=== PATIENT | male | born 1960 | race Caucasian/White ===

== ENCOUNTER 2020-02-22 04:59 | Inpatient (IN) | payer BC ==
[~2020-02-22] VITALS: Ht 165.1 cm; Wt 95.7 kg
[~2020-02-22 04:59] MED LIST: PRINZIDE 12.5 M1 TA1 PO
[2020-02-22] MEDS ORDERED: ZESTRIL 20MG TA20 MG PO (05:06)
[2020-02-22] MEDS ORDERED: HCTZ12.5TAB PO (05:06)
[2020-02-22 05:25] LABS: HEMATOCRIT 40.6 % (42.0-52.0); HEMOGLOBIN 14.5 g/dl (13.5-18.0); MEAN CELL VOLUME 96 fl (80.0-100.0); MEAN CORPUSCULAR HEMOGLOBIN 34 pg (27.0-31.0); MEAN CORPUSCULAR HGB CONC 36 g/dl (33.0-37.0); MEAN PLATELET VOLUME 8.9 fl (7.4-10.4); PLATELET COUNT 237 K/mm3 (130-400); RED BLOOD COUNT 4.25 M/mm3 (4.20-5.60); REDCELL DISTRIBUTION WIDTH-CV 11.7 % (11.5-14.5)
[2020-02-22 05:32] LABS: PROTHROMBIN TIME 11.1 SECONDS (9.7-12.8)
[2020-02-22 05:37] LABS: ALBUMIN 4.8 gm/dL (3.5-5.0); BILIRUBIN,TOTAL 0.8 mg/dL (0.0-1.0); CREATININE, serum 1.4 (0.66-1.25); POTASSIUM 4.1 mmol/L (3.4-5.0); TOTAL PROTEIN 8.5 gm/dL (6.4-8.2)
[2020-02-22 05:45] LABS: BAND 1 % (0-10); LYMPHOCYTE 2 % (20.0-51.0); NEUTROPHILS 82 % (42.0-75.2); PLATELET ESTIMATE NORMAL (NORMAL)
[2020-02-22 05:46] LABS: TROPONIN-I 0.03 ng/mL (0.000-0.035)
[2020-02-22 09:36] VITALS: BP 118/74; PULSE 95; TEMP 98.2
--- NOTE | 2020-02-22 09:40 | NUR ---
PATIENT ADMITED INTO ROOM 327 FROM ER. PATIENT REPORTS FALLING AT HOME LAST THUR, PAIN KEPT INCREASING AND HE CALLED EMS TODAY WHEN HE COULD GET UP. PATIENT PRESENTED IN SEVERE PAIN IN RIGHT RIBS & BACK. CT SHOWED 7 & 8tH RIB AND T12 FX'S. PATIENT REPORTS INTERMITTENT, SEVERE MUSCLE CRAMPS IN RIGHT UPPER BACK. PATIENT GIVEN SEVERAL PAIN MEDICATIONS & ATIVAN IN ER. ER REPORTED TACHYCARDIA OF 120-130'S, PATIENT NOW IN 80'S ON TELE. ALL OTHER VSS. PATIENT REPORTS PAIN IS BETTER BUT STILL HAS OCCATIONAL BACK SPAMS. HEAD TO TOE ASSESSMENT COMPLETE. HOSPITALIST NOTIFIED OF ARRIVAL, AWAITING ORDERS. PATIENT CURRENTLY NPO. IV FLUIDS INFUSING VIA PUMP INTO LEFT HAND IV. NO OTHER NEEDS. CALL LIGHT IN REACH.
[2020-02-22] MEDS ORDERED: ADVIL200 MG PO (10:33)
[2020-02-22] MEDS ORDERED: TYLENOL 500MG500 MG PO (10:34)
--- NOTE | 2020-02-22 10:42 | NUR ---
LAB AT BEDSIDE
[2020-02-22 11:40] VITALS: BP 136/75; PULSE 95; TEMP 98.2
[2020-02-22 15:54] VITALS: BP 164/96; PULSE 95; TEMP 97.2
--- NOTE | 2020-02-22 20:30 | NUR ---
Pt. sitting up in chair at this time. Pt. is A&OX3, assessment complete. IV to lt. hand patent, IV fluids infusing per orders. Pt. reports pain at a 4 on pain scale at this time. Pt. reports that the pain medication has helped. Pt. denies further needs, call light within reach.
[2020-02-23 04:30] VITALS: BP 161/91; PULSE 80; TEMP 98.7
[2020-02-23 06:46] LABS: CALCIUM 9.1 mg/dL (8.4-10.2); CREATININE, serum 0.74 (0.66-1.25); POTASSIUM 3.9 mmol/L (3.4-5.0)
[2020-02-23 07:42] LABS: MEAN CELL VOLUME 97 fl (80.0-100.0); MEAN CORPUSCULAR HEMOGLOBIN 34 pg (27.0-31.0); MEAN CORPUSCULAR HGB CONC 36 g/dl (33.0-37.0); MEAN PLATELET VOLUME 9.6 fl (7.4-10.4); PLATELET COUNT 207 K/mm3 (130-400); RED BLOOD COUNT 3.79 M/mm3 (4.20-5.60); REDCELL DISTRIBUTION WIDTH-CV 11.9 % (11.5-14.5)
[2020-02-23 07:54] LABS: HEMATOCRIT 36.6 % (42.0-52.0)
[2020-02-23 08:13] VITALS: BP 132/73; PULSE 82; TEMP 97.4
[2020-02-23 08:21] LABS: BAND 1 % (0-10); EOSINOPHIL 2 % (0-4); LYMPHOCYTE 4 % (20.0-51.0); NEUTROPHILS 83 % (42.0-75.2); PLATELET ESTIMATE NORMAL (NORMAL)
--- NOTE | 2020-02-23 10:58 | NUR ---
The patient met with the patient to complete initial intake. The patient lives alone in [place]. The patient denies DME usage and is independent with ADLs. The patient's PCP is Dr. Hernández in [place] and receives medications from [facility]. The patient does not have advanced directives. The patient states he is but has two daughters, Rad and Angela Cantu. Rad's phone # ([phone]); Angela's phone # ([phone]). The patient plans to return home at discharge. He will need assistance to have a cab ride home. He states he can pay for one. Will continue to follow.
[2020-02-23 11:37] VITALS: BP 164/93; PULSE 96; TEMP 99.2
[2020-02-23] MEDS ORDERED: ZANAFLEX 4MG TAB4 MG PO (11:48)
[2020-02-23] MEDS ORDERED: NORCO 325 MG-51 TAB PO (11:49)
[2020-02-23 14:09] LABS: PH 5 (5-8); SQUAMOUS EPITHELIAL 0-2 /hpf; URINE APPEARANCE Clear; URINE BACTERIA Rare /hpf; URINE BILIRUBIN Negative (NEGATIVE); URINE BLOOD Negative (NEGATIVE); URINE COLOR Yellow; URINE GLUCOSE Negative (NEGATIVE); URINE KETONE Negative (NEGATIVE); URINE LEUKOCYTE ESTERASE Negative (NEGATIVE); URINE NITRATE Negative (NEGATIVE); URINE PROTEIN(semi-quant) Negative (NEGATIVE); URINE RBC 0-2 /hpf; URINE UROBILINOGEN Negative (NEGATIVE)
[2020-02-23 14:13] LABS: MUCOUS Present /lpf
[2020-02-23 14:24] LABS: COLLECTION METHOD CLEAN CATCH
--- NOTE | 2020-02-23 14:30 | NUR ---
Patient is discharging home. Discharge instructions discussed with patient. No questions verbalized. INT discontinued. Copies of discharge intructions sent with patient. All belongings packed up and sent with patient. 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 Patient walked out via wheel chair by Deirdre NUGENT.
== END 2020-02-23 14:45 | disposition home or self-care (01) | DRG 184 ==
LOC: COL.ER 04:59 → JCC 07:00
PROVIDERS: Emergency Medicine; Physician Assistant; ADMIT Hospitalist
DX: S22.41XA Multiple fractures of ribs, right side, initial encounter for closed fracture (principal); E87.1 Hypo-osmolality and hyponatremia; N17.9 Acute kidney failure, unspecified; M43.9 Deforming dorsopathy, unspecified; L40.9 Psoriasis, unspecified; K76.0 Fatty (change of) liver, not elsewhere classified; E66.01 Morbid (severe) obesity due to excess calories; R00.0 Tachycardia, unspecified; D72.829 Elevated white blood cell count, unspecified; I10 Essential (primary) hypertension; W18.30XA Fall on same level, unspecified, initial encounter; Y92.002 Bathroom of unspecified non-institutional (private) residence as the place of occurrence of the external cause; E87.8 Other disorders of electrolyte and fluid balance, not elsewhere classified; Z68.35 Body mass index [BMI] 35.0-35.9, adult; F17.210 Nicotine dependence, cigarettes, uncomplicated; Z79.1 Long term (current) use of non-steroidal anti-inflammatories (NSAID)
CPT/HCPCS: 99222-AI; 99239; J1170; J1644; J1885; J2060; J2405; J7030; Q9967

== ENCOUNTER 2024-07-27 12:25 | Inpatient (IN) | payer MEDICARE ==
[~2024-07-27] VITALS: Ht 165.1 cm; Wt 97.0 kg
[2024-07-27] VITALS (107 sets, daily range): BP systolic 63–186; BP diastolic 46–89; PULSE 87–126; TEMP 98–99; O2SAT 47–100
[~2024-07-27 12:25] MED LIST changes: +ADVIL200 MG PO; +HCTZ12.5TAB PO; +NORCO 325 MG-51 TAB PO; +TYLENOL 500MG500 MG PO; +ZANAFLEX 4MG TAB4 MG PO; +ZESTRIL 20MG TA20 MG PO
[2024-07-27] MEDS ORDERED: NS 1,000 ML IV ONE ×3 (12:45→20:30)
[2024-07-27] MEDS ORDERED: Ondansetron 4 MG/2 ML VIAL IV ONE (12:45)
[2024-07-27 13:36] LABS: BASO % 0.2 % (0.0-2.0); EOS % 0.1 % (0.0-4.0); GRAN # 10.8 K/mm3 (1.4-6.5); GRAN % 83.3 % (42.2-75.2); LYMPH # 0.6 K/mm3 (1.2-3.4); LYMPH % 4.6 % (20.0-51.0); MEAN CELL VOLUME 88 fl (80.0-100.0); MEAN CORPUSCULAR HGB CONC 30 g/dl (33.0-37.0); MEAN PLATELET VOLUME 10.5 fl (7.4-10.4); MONO # 1.5 K/mm3 (0.1-0.6); MONO % 11.6 % (1.7-9.3); PLATELET COUNT 346 K/mm3 (130-400); RED BLOOD COUNT 3.27 M/mm3 (4.20-5.60); REDCELL DISTRIBUTION WIDTH-CV 19.2 % (11.5-14.5)
[2024-07-27 13:40] LABS: HEMATOCRIT 28.7 % (42.0-52.0); HEMOGLOBIN 8.5 g/dl (13.5-18.0); MEAN CORPUSCULAR HEMOGLOBIN 26 pg (27-31)
[2024-07-27 13:44] LABS: ALBUMIN 3.2 g/dL (3.4-4.8); BILIRUBIN,TOTAL 0.5 mg/dL (0.2-1.2); C-REACTIVE PROTEIN 12.96 mg/dL (0.00-0.50); CREATININE, serum 3.77 mg/dL (0.72-1.25); TOTAL PROTEIN 6.6 g/dl (6.2-8.1)
[2024-07-27 14:13] LABS: CALCIUM 13.4 mg/dL (8.4-10.2)
[2024-07-27] MEDS ORDERED: Iohexol 300 - 100 ML VIAL IV ONE (14:14)
[2024-07-27] MEDS ORDERED: NS 100 ML IV SCH (14:15)
[2024-07-27 14:23] LABS: PH 5.5 (5.0-8.5); URINE APPEARANCE CLOUDY (CLEAR/HAZY); URINE BLOOD 3+ (NEGATIVE); URINE COLOR YELLOW (YELLOW); URINE GLUCOSE NEGATIVE (NEGATIVE); URINE KETONE TRACE (NEGATIVE); URINE NITRATE NEGATIVE (NEGATIVE); URINE PROTEIN(semi-quant) 2+ (NEGATIVE)
[2024-07-27] MEDS ORDERED: Vancomycin 1.75 GM,Special Dose/Pharmacy Prepared 1.75 GM in NS 500 ML IV ONE (14:45)
[2024-07-27] MEDS ORDERED: *Vancomycin Dosing Protocol IV SCH (14:45)
[2024-07-27 14:46] LABS: COLLECTION METHOD CATHETER
[2024-07-27 14:49] LABS: AMORPHOUS CRYSTAL PRESENT (NOT PRESENT); MUCOUS PRESENT (NOT PRESENT); SQUAMOUS EPITHELIAL 0-2 /hpf (0-10); URINE BACTERIA MODERATE /hpf (NONE SEEN); URINE CALCIUM OXALATE CRYSTAL PRESENT (NOT PRESENT)
[2024-07-27] MEDS ORDERED: NS 500 ML IV ONE (15:00)
[2024-07-27] MEDS ORDERED: NORVASC 10MG10 MG PO (15:15)
[2024-07-27] MEDS ORDERED: ALBUMIN IV ONE (15:47)
[2024-07-27] MEDS ORDERED: Vecuronium 10 MG VIAL IV ONE (15:58)
[2024-07-27] MEDS ORDERED: Succinylcholine PF 200 MG/10 ML SYRINGE IV ONE (15:59)
[2024-07-27] MEDS ORDERED: fentaNYL 50 MCG/ML 5 ML VIAL ONE (16:01)
[2024-07-27] MEDS ORDERED: Lidocaine PF 2% (20 MG/ML) 5 ML VIAL ONE (16:20)
[2024-07-27] MEDS ORDERED: NS 100 ML IV ONE (16:57)
[2024-07-27] MEDS ORDERED: Phenylephrine 10 MG/ML VIAL ONE (16:57)
[2024-07-27] MEDS ORDERED: LR 1,000 ML IV ONE (17:26)
[2024-07-27] MEDS ORDERED: Ondansetron 4 MG/2 ML VIAL ONE (17:31)
[2024-07-27] MEDS ORDERED: dexAMETHasone 10 MG/ML VIAL ONE (17:31)
[2024-07-27] MEDS ORDERED: Neostigmine 1 MG/ML 10 ML Multi-Dose Vial ONE (17:37)
[2024-07-27] MEDS ORDERED: Glycopyrrolate 0.2 MG/ML 1 ML VIAL ONE ×2 (17:37→17:38)
[2024-07-27] MEDS ORDERED: Albuterol/Ipratropium 3 MG-0.5 MG/3 ML Neb Soln IH PRN (18:30)
[2024-07-27] MEDS ORDERED: Naloxone 0.4 MG/ML VIAL IV PRN (18:30)
[2024-07-27 18:37] LABS: MEAN CELL VOLUME 86 fl (80.0-100.0); MEAN CORPUSCULAR HGB CONC 30 g/dl (33.0-37.0); MEAN PLATELET VOLUME 10.7 fl (7.4-10.4); PLATELET COUNT 253 K/mm3 (130-400); RED BLOOD COUNT 2.64 M/mm3 (4.20-5.60); REDCELL DISTRIBUTION WIDTH-CV 19.1 % (11.5-14.5)
[2024-07-27 18:42] LABS: HEMATOCRIT 22.6 % (42.0-52.0); HEMOGLOBIN 6.8 g/dl (13.5-18.0); MEAN CORPUSCULAR HEMOGLOBIN 26 pg (27-31)
[2024-07-27 18:56] LABS: ALBUMIN 2.9 g/dL (3.4-4.8); BILIRUBIN,TOTAL 0.4 mg/dL (0.2-1.2); CALCIUM 10.7 mg/dL (8.4-10.2); CREATININE, serum 3.71 mg/dL (0.72-1.25); MAGNESIUM 1.9 mg/dL (1.6-2.6); POTASSIUM 4.5 mEq/L (3.5-4.5); TOTAL PROTEIN 5.2 g/dl (6.2-8.1)
[2024-07-27] MEDS ORDERED: *Potassium Replacement Protocol MC SCH (19:00)
[2024-07-27] MEDS ORDERED: NS 1,000 ML IV SCH (19:00)
[2024-07-27 19:04] LABS: TROPONIN-I 0.627 ng/mL (0.00-0.033)
[2024-07-27 19:18] LABS: ARTERIAL BLD GAS O2 SATURATION 99.9 % (92-100); ARTERIAL BLD GAS TCO2 CT 16.6; ARTERIAL BLOOD GAS HCO3 15.7 meq/L (22-26); ARTERIAL BLOOD GAS PCO2 29.1 mmHg (35-45); ARTERIAL BLOOD GAS pH 7.35 (7.35-7.45)
[2024-07-27 19:19] LABS: ARTERIAL BLOOD GAS PO2 222.6 mmHg (80-100)
[2024-07-27] MEDS ORDERED: NS IV SCH (19:30)
[2024-07-27 21:07] LABS: ARTERIAL BLD GAS O2 SATURATION 99.6 % (92-100); ARTERIAL BLD GAS TCO2 CT 20.1; ARTERIAL BLOOD GAS BASE EXCESS -4.2 (-2-2); ARTERIAL BLOOD GAS HCO3 19.2 meq/L (22-26); ARTERIAL BLOOD GAS PCO2 28.2 mmHg (35-45); ARTERIAL BLOOD GAS pH 7.45 (7.35-7.45)
[2024-07-27 21:08] LABS: ARTERIAL BLOOD GAS PO2 134.6 mmHg (80-100)
[2024-07-28] VITALS (687 sets, daily range): BP systolic 88–114; BP diastolic 51–67; PULSE 83–117; TEMP 97.8–99.3; O2SAT 87–100
[2024-07-28] MEDS ORDERED: Albuterol/Ipratropium 3 MG-0.5 MG/3 ML Neb Soln IH SCH (02:00)
--- NOTE | 2024-07-28 02:43 | NUR ---
PULLED ETT FROM 25LIP TO 22LIP PER DR HENNESSY.
[2024-07-28] MEDS ORDERED: fentaNYL 100 ML IV SCH (02:45)
--- NOTE | 2024-07-28 02:46 | NUR ---
@ 1925 INCREASED RR TO 22 FROM 20 AND DECREASED FIO2 TO [address] HENNESSY. @ 1037 DECREASED RR BACK TO 20 PER Gabriela MOTA. will redraw abg around 4am.
--- NOTE | 2024-07-28 03:07 | NUR ---
AT 2320 PATIEMT'S HEART EPED UP TO 180 B/P ARTERIAL 180/90, ANESTHIA MEDS AND PAIN MEDS INTIATED, PATIENT ALSO BREATHING OVER VENT. CURRENTLY PATIENT REACTS TO EXTERNAL STIMULI HEART RATE AND B/P REMAIN CALM
[2024-07-28 04:14] LABS: ARTERIAL BLD GAS O2 SATURATION 96.3 % (92-100); ARTERIAL BLD GAS TCO2 CT 17.5; ARTERIAL BLOOD GAS BASE EXCESS -6.6 (-2-2); ARTERIAL BLOOD GAS HCO3 16.7 meq/L (22-26); ARTERIAL BLOOD GAS PCO2 25.4 mmHg (35-45); ARTERIAL BLOOD GAS PO2 86.9 mmHg (80-100); ARTERIAL BLOOD GAS pH 7.44 (7.35-7.45)
[2024-07-28 05:08] LABS: MEAN CELL VOLUME 82 fl (80.0-100.0); MEAN CORPUSCULAR HGB CONC 33 g/dl (33.0-37.0); MEAN PLATELET VOLUME 9.9 fl (7.4-10.4); PLATELET COUNT 239 K/mm3 (130-400); RED BLOOD COUNT 2.87 M/mm3 (4.20-5.60); REDCELL DISTRIBUTION WIDTH-CV 18.6 % (11.5-14.5)
[2024-07-28 05:19] LABS: HEMATOCRIT 23.4 % (42.0-52.0); HEMOGLOBIN 7.7 g/dl (13.5-18.0); MEAN CORPUSCULAR HEMOGLOBIN 27 pg (27-31)
[2024-07-28 05:29] LABS: ALBUMIN 2.4 g/dL (3.4-4.8); CREATININE, serum 3.54 mg/dL (0.72-1.25); MAGNESIUM 1.6 mg/dL (1.6-2.6); PHOSPHOROUS 5.1 mg/dL (2.3-4.7); POTASSIUM 4.6 mEq/L (3.5-4.5)
--- NOTE | 2024-07-28 05:47 | NUR ---
@ 0420 DECREASED RR ON VENT TO 18 FROM 20 PER Gabriela MOTA.
--- NOTE | 2024-07-28 05:53 | NUR ---
WHEN PATIENT IS OFF SEDATION RAPID HEART RATE ABOVE 120 B/P ELEVATED
[2024-07-28 06:55] LABS: ANISOCYTOSIS 2+; BAND 45 % (0-10); HYPOCHROMIA 1+; LYMPHOCYTE 3 % (20.0-51.0); NEUTROPHILS 42 % (42.0-75.2); PLATELET ESTIMATE NORMAL (NORMAL)
--- NOTE | 2024-07-28 07:52 | NUR ---
Patient laying in bed, intubated with 8.5 tube, 22 cm at the teeth, AC mode, 480 tidal volume, 18 RR, 35% FiO2, 5.0 peep. NG tube at 50cm in the right nare, no irritation noted, on low intermittent suction, draining minimal amount green mossy colored drainage. Afebrile, and vitals stable. Overnight, it was reported that when sedation was shut off, his heart rate accelerated 200+ and his blood pressure was >180 Systolic. NS, fentanyl, proprofol, and levophed infusing into LIJ without complications. Tenorio is draining low amount of yellow clear urine, 250 ml over night, and 80 ml at shift change. SCDs on. Lap sites well approximated.
[2024-07-28] MEDS ORDERED: 1: LR 1,000 ML 2: NS 1,000 ML IV SCH (08:30)
[2024-07-28] MEDS ORDERED: Magnesium Sulfate 4% 50 ML IV ONE (08:45)
[2024-07-28] MEDS ORDERED: Insulin Lispro (HumaLOG) SQ SCH (12:00)
--- NOTE | 2024-07-28 12:55 | NUR ---
SW met with patient's two daughters in room, patient on vent and sedated. Daughters verified patient's information. Patient lives alone in [place] and daughter's report he just retired from [employer] in May. They deny that he uses any DME and does not have a DPOA assigned. Patient lists his brother Wicho Cantu ([phone]) and his daughter Angela Cantu ([phone]) as his contacts. Patient is listed to see Dr. Hernández in [place] and use [facility] pharmacy. Discharge plan is uncertain at this time due to patient being vented and sedated. SW will continue to follow. Discharge plan: TBD
[2024-07-28] MEDS ORDERED: Folic Acid 1 MG,Thiamine 200 MG in NS 1,000 ML IV SCH (16:00)
--- NOTE | 2024-07-28 16:44 | NUR ---
Family bedside. Patient is able to wiggle toes when asked, has reflexes and withdrawls from pain. Eyes are becoming more reactive, 2-3 mm, sluggish to react. Art line is patent, LIJ is patent and drawing, esquivel is draining kirill urine, 450 total for AM shift. Levophed, fentanyl, propofol, vancomycin, banana bag, and LR/NS infusing without complications. No concerns at this time, family questions have been answered. Dr. Cody was consulted and has no further recommendations at this time.
--- NOTE | 2024-07-28 20:27 | NUR ---
PATIENT CURRENTLY INTUBATED AND SEDATED. BILATERAL WRIST RESTRAINTS IN PLACE. ET TUBE AT 22 AT THE LIP, OG AT 50 AT THE LIP. CENTRAL LINE TO LEFT JUGULAR. ART LINE IN LEFT RADIAL. FINLEY CATHETER IN PLACE AND DRAINING PROPERLY. NO ACUTE EVENTS.
[2024-07-29] VITALS (1059 sets, daily range): BP systolic 89–152; BP diastolic 48–754; PULSE 71–111; TEMP 98–99; O2SAT 41–100
[2024-07-29] MEDS ORDERED: Vasopressin 20 UNITS in NS 100 ML IV SCH (02:00)
[2024-07-29] MEDS ORDERED: Vasopressin 20 UNITS in NS 100 ML IV ONE (02:00)
[2024-07-29 05:13] LABS: ARTERIAL BLD GAS O2 SATURATION 96.3 % (92-100); ARTERIAL BLD GAS TCO2 CT 16.9; ARTERIAL BLOOD GAS BASE EXCESS -8.4 (-2-2); ARTERIAL BLOOD GAS HCO3 16.1 meq/L (22-26); ARTERIAL BLOOD GAS PCO2 28.6 mmHg (35-45); ARTERIAL BLOOD GAS PO2 90.1 mmHg (80-100); ARTERIAL BLOOD GAS pH 7.37 (7.35-7.45)
[2024-07-29 05:18] LABS: MEAN CELL VOLUME 83 fl (80.0-100.0); MEAN CORPUSCULAR HGB CONC 32 g/dl (33.0-37.0); MEAN PLATELET VOLUME 10.5 fl (7.4-10.4); PLATELET COUNT 202 K/mm3 (130-400); RED BLOOD COUNT 2.52 M/mm3 (4.20-5.60); REDCELL DISTRIBUTION WIDTH-CV 18.7 % (11.5-14.5)
[2024-07-29 05:31] LABS: HEMATOCRIT 20.9 % (42.0-52.0); MEAN CORPUSCULAR HEMOGLOBIN 26 pg (27-31)
[2024-07-29 05:32] LABS: HEMOGLOBIN 6.6 g/dl (13.5-18.0)
[2024-07-29 05:39] LABS: CALCIUM 7.7 mg/dL (8.4-10.2); CREATININE, serum 3.38 mg/dL (0.72-1.25); POTASSIUM 4.3 mEq/L (3.5-4.5)
[2024-07-29 05:49] LABS: MAGNESIUM 2.1 mg/dL (1.6-2.6); PHOSPHOROUS 4.7 mg/dL (2.3-4.7)
[2024-07-29 06:06] LABS: BAND 9 % (0-10); LYMPHOCYTE 2 % (20.0-51.0); NEUTROPHILS 80 % (42.0-75.2)
[2024-07-29 06:07] LABS: ANISOCYTOSIS 2+; HYPOCHROMIA 1+; PLATELET ESTIMATE NORMAL (NORMAL)
--- NOTE | 2024-07-29 06:55 | NUR ---
PATIENT NOT STABLE ENOUGH TO ATTEMPT SEDATION VACATION AT THIS TIME THEREFORE NO SEDATION VACATION COMPLETED
--- NOTE | 2024-07-29 07:00 | NUR ---
REPORT RECEIVED FROM DOMINGA HOLLOWAY. PT REMAINTS INTUBATED AND SEDATED; TOLERATING WELL. PT DOES NOT FOLLOW COMMANDS OR MAKE PURPOSEFUL MOVEMENT. PT'S EXTREMEDIES DUE MOVE AT TIMES BUT DOES NOT APPEAR PURPOSEFUL. BILATERAL SOFT WRIST RESTRAINTS IN PLACE. GTT'S INFUSING; SEE FLOWSHEET. NO PLANS FOR WEANING TRIAL AT THIS TIME DUE TO NEUROLOGICAL ASSESSMENT.
[2024-07-29] MEDS ORDERED: Glucagon 1 MG VIAL IM PRN (07:30)
[2024-07-29] MEDS ORDERED: Dextrose (Glucose) 15 GM (4 x 3.75 GM) Chewable TABLET PACK PO PRN (07:30)
[2024-07-29] MEDS ORDERED: Dextrose 50% Water 25 GM/50 ML SYRINGE IV PRN (07:30)
--- NOTE | 2024-07-29 10:51 | NUR ---
SW attended clinical rounds with team. Patient remains intubated and sedated. Both daughters at bedside and have met with Dr. Sarahi Carr. Dr. Rojas discussed patient's condition with daughter during rounds. All questions answered. Daughters reiterated that patient does not have DPOA assigned to anyone and as far as they know does not have a living will. They stated "we make decisions together". SW will continue to follow. Discharge plan: TBD pending medical course
[2024-07-29] MEDS ORDERED: Cefepime 1 G in Water For Injection,Sterile 10 ML IV SCH (13:15)
[2024-07-29] MEDS ORDERED: metroNIDAZOLE 100 ML IV SCH (13:15)
--- NOTE | 2024-07-29 13:35 | NUR ---
This RN called Dr. Param Carr to notify that sedation has been decreased steadily thoughout shift to assess pt's neuro status. Pt is now awake but not following commands. Shifting back in forth in bed and gagging on ETT. Dr. Carr states okay to go ahead and re-sedate pt. Dr. Carr feels that pt does not need CT of head/abd/pelvis at this time.
[2024-07-29] MEDS ORDERED: Furosemide 100 MG/10 ML VIAL IV ONE (17:45)
[2024-07-29 20:30] LABS: HEMATOCRIT 22.6 % (42.0-52.0); HEMOGLOBIN 7.3 g/dl (13.5-18.0)
--- NOTE | 2024-07-29 21:00 | NUR ---
DAUGHTERS AT BEDSIDE. PT OVERBREATHING ON VENTILATOR. VT BETWEEN 200 TO 1000 CAUSING VENTILATOR TO ALARM. DAUGHTER'S HAD QUESTIONS REGARDING VENTILATOR AND WHEN PT WILL COME OFF WELL WHY THE VENTILATOR WAS ALARMING. QUESTIONS ANSWERED.
--- NOTE | 2024-07-29 21:49 | NUR ---
ETT ADVANCED 2 CM TO 24 AT LIP.
--- NOTE | 2024-07-29 22:17 | NUR ---
PATIENT OPENS EYES SPONTANEOUSLY AND LOOKS AROUND, DOES NOT FOLLOW COMMANDS WHEN EYES OPEN. PATIENT IN 2 POINT SOFT WRIST RESTRAINT, BED IN LOWEST POSITION.
[2024-07-30] VITALS (1025 sets, daily range): BP systolic 80–122; BP diastolic 55–89; PULSE 72–101; TEMP 98.1–98.8; O2SAT 79–100
--- NOTE | 2024-07-30 01:25 | NUR ---
PATIENT GASTRIC CONTENTS ARE BLOOD TINGED. ENTIRE SYSTEM SWITCHED OUT TO MONITOR THIS CHANGE IN GASTRIC DRAINAGE. DR. LEE NOTIFIED
--- NOTE | 2024-07-30 01:39 | NUR ---
TITRATE VASOPRESSIN BY 0.005, FROM 0.04 TO 0.035 (10.5ML/HR), UNABLE TO DOCUMENT IN PROCESS INTERVENTIONS IT WILL NOT ALLOW ME TO CHART THAT MANY DECIMAL PLACES. BP 130/80, MAP 100, PULSE 98
[2024-07-30 02:27] LABS: MEAN CELL VOLUME 86 fl (80.0-100.0); MEAN CORPUSCULAR HGB CONC 32 g/dl (33.0-37.0); MEAN PLATELET VOLUME 10.3 fl (7.4-10.4); PLATELET COUNT 122 K/mm3 (130-400); REDCELL DISTRIBUTION WIDTH-CV 18.4 % (11.5-14.5)
[2024-07-30 02:36] LABS: HEMATOCRIT 22.3 % (42.0-52.0); HEMOGLOBIN 7.1 g/dl (13.5-18.0); MEAN CORPUSCULAR HEMOGLOBIN 27 pg (27-31)
[2024-07-30 02:53] LABS: BAND 1 % (0-10); HYPOCHROMIA 1+; LYMPHOCYTE 1 % (20.0-51.0); NEUTROPHILS 93 % (42.0-75.2); PLATELET ESTIMATE DECREASED (NORMAL)
[2024-07-30 02:56] LABS: ALBUMIN 1.9 g/dL (3.4-4.8); CALCIUM 7.4 mg/dL (8.4-10.2); MAGNESIUM 2.1 mg/dL (1.6-2.6); PHOSPHOROUS 4.1 mg/dL (2.3-4.7); POTASSIUM 3.5 mEq/L (3.5-4.5)
[2024-07-30 03:22] LABS: CREATININE, serum 3.06 mg/dL (0.72-1.25)
[2024-07-30] MEDS ORDERED: Potassium Chloride 100 ML IV ONE ×2 (03:30→12:00)
[2024-07-30 04:35] LABS: ARTERIAL BLD GAS O2 SATURATION 92.8 % (92-100); ARTERIAL BLD GAS TCO2 CT 16.5; ARTERIAL BLOOD GAS BASE EXCESS -8.7 (-2-2); ARTERIAL BLOOD GAS HCO3 15.6 meq/L (22-26); ARTERIAL BLOOD GAS PCO2 28.1 mmHg (35-45); ARTERIAL BLOOD GAS PO2 71.2 mmHg (80-100); ARTERIAL BLOOD GAS pH 7.36 (7.35-7.45)
--- NOTE | 2024-07-30 05:56 | NUR ---
NO SEDATION VACATION AT THIS TIME, PATIENT FREQUENTLY MOVING AND TRYING TO GET OUT OF BED ON CURRENT SEDATION LEVEL
--- NOTE | 2024-07-30 06:01 | NUR ---
0403: TITRATED VASO DOWN TO 0.03, BP 112/69 MAP: 83, P: 87 0600: TITRATED DOWN TO 0.025, BP 100/80, MAP: 92, P 75
--- NOTE | 2024-07-30 06:45 | NUR ---
WHEN DOING ASSESSMENT ON PATIENT AT 4 I WAS ABLE TO SEE UNDERNEATH OF HIM BETTER AND NOTED A SMALL OPEN AREA ON HIS COCCYX THAT APPEARS TO BE MASD.
--- NOTE | 2024-07-30 07:00 | NUR ---
PT ON VENTILATOR, SETTINGS VERIFIED WITH NIGHT RN. BILATERAL SOFT WRIST RESTRAINTS IN PLACE. NG TUBE IN PLACE TO LIS. VASOPRESSIN AT 7.5 MLS/HR, PROPOFOL AT 16.4 MLS/HR, FENTANYL AT 2.5 MLS/HR, LR AT 60 MLS/HR. PT OPENING EYES TO VOICE BUT NOT FOLLOWING COMMANDS. PT HAS NO OBVIOUS NEEDS AT THIS TIME. BED IN LOWEST POSITION, CALL LIGHT IN REACH, BED ALARM ON.
[2024-07-30] MEDS ORDERED: LORazepam 2 MG/ML 1 ML VIAL IV PRN (08:15)
[2024-07-30] MEDS ORDERED: Fluconazole 200 MG/100 ML IV SOLN IV SCH (09:00)
--- NOTE | 2024-07-30 09:33 | NUR ---
ADVANCED ETT TO 25@ THE LIP PER DR HENNESSY.
--- NOTE | 2024-07-30 09:49 | NUR ---
PT LAYING IN BED UPON ENTERING. PT ON VENTILATOR AND SEDATED, BILATERAL SOFT WRIST RESTRAINTS IN PLACE. DR HENNESSY AT BEDSIDE. PT RESTLESS AND PULLING ON RESTRAINTS WITH NO PURPOSFUL MOVEMENT. EYES OPENING AND NOT FOLLOWING MOVEMENTS OR COMMANDS. [address] COVERED WITH BANDAIDS, CDI. FINLEY DRAINING WITHOUT ISSUES. SCANT BRIGHT RED BLOOD NOTED IN NG TUBE. ARTERIAL LINE REMOVED, PRESSURE HELD FOR 5 MINS, GAUZE AND TEGADERM PLACED. FAMILY UPDATED ON PLAN OF CARE AND VERBALIZED UNDERSTANDING. PT HAS NO OBVIOUS NEEDS AT THIS TIME. BED IN LOWEST POSITION, CALL LIGHT IN REACH, BED ALARM ON.
[2024-07-30] MEDS ORDERED: Pantoprazole 40 MG in NS 10 ML IV SCH (10:00)
[2024-07-30 10:11] LABS: CHOLESTEROL 78 mg/dL (0-199)
[2024-07-30 10:13] LABS: INR 1.1 (0.8-3.0); PROTHROMBIN TIME 11.8 SECONDS (9.7-12.8)
--- NOTE | 2024-07-30 10:13 | NUR ---
Initial visit; Patient's two daughters thanked [facility] for offering Spiritual Care, especially praying for their DadSoham Walker and for strength and courage for them and the rest of their family who left yesterday. [facility] will keep all in her prayers.
[2024-07-30 10:15] LABS: PARTIAL THROMBOPLASTIN TIME 27.3 SECONDS (26.0-37.0)
--- NOTE | 2024-07-30 11:25 | NUR ---
[address] VIA BED WITH MONITOR BY 2 RNS AND RESPIRATORY. PT TOELRATED WELL 1108 PT BACK IN ROOM. MEDS RUNNING PER ORDER AND HAS NO OBVIOUS NEEDS AT THIS TIME. BED IN LOWEST POSITION, CALL LIGHT IN REACH, BED ALARM ON
--- NOTE | 2024-07-30 11:31 | NUR ---
TOOK PATIENT TO CT SCAN @ 1050 TO 1108. BAGGED PT THERE AND BACK NO COMPLICATIONS TOLERATED WELL. PLACED BACK ON VENTILATOR PER CHARTED SETTINGS @1108. SXN LARGE AMOUNT THICK CREAM COLORED SECRETIONS PER ETT AND ORAL.
--- NOTE | 2024-07-30 13:00 | NUR ---
PT BECOMING RESTLESS IN BED, DAUGHTER AT BEDSIDE. FAMILY AWARE OF MEDICATION PLANS AND ASKING PT TO BE GIVEN ATIVAN TO KEEP FROM GOING UP ON SEDATION. PRN ATIVAN GIVEN PER ORDER.
[2024-07-30] MEDS ORDERED: Vasopressin 20 UNITS in NS 100 ML IV PRN (14:00)
[2024-07-30] MEDS ORDERED: Furosemide 40 MG/4 ML VIAL IV SCH (15:30)
[2024-07-30] MEDS ORDERED: MULTIVITAMINS FOLIC ACID IV SCH (16:00)
[2024-07-30] MEDS ORDERED: THIAMINE IV SCH (16:00)
[2024-07-30] MEDS ORDERED: [UNRECOGNIZED DRUG - OTHER] IV SCH (16:00)
--- NOTE | 2024-07-30 17:01 | NUR ---
SEDATION VACATION NOT PERFORMED PER DR HENNESSY. WITH DECREASED SEDATION PT BECOMES AGITATED AND NOT FOLLOWING COMMANDS
--- NOTE | 2024-07-30 19:30 | NUR ---
Patient resting quietly in bed. Remains on ventilator, tolerating well. Family at bedside. Vitals within normal limits. Patient continues to receive fentanyl, propofol, and TPN, see IV drip titrations. NG to LIS.
[2024-07-30 20:33] LABS: HEMATOCRIT 22.4 % (42.0-52.0); HEMOGLOBIN 7.2 g/dl (13.5-18.0)
--- NOTE | 2024-07-30 21:12 | NUR ---
FAMILY AT BEDSIDE TALKING TO TELEHEALTH DOCTOR.
--- NOTE | 2024-07-30 21:19 | NUR ---
RT AND RN NOTED PT TO BE BELLY BREATHING.
--- NOTE | 2024-07-30 22:12 | NUR ---
Received report from DOMINGA Man, and DOMINGA Diggs.
[2024-07-31] VITALS (1349 sets, daily range): BP systolic 84–123; BP diastolic 54–71; PULSE 85–123; TEMP 98.4–100.4; O2SAT 83–100
--- NOTE | 2024-07-31 02:21 | NUR ---
PT TOLERATING VENT WELL, NOTED TO BE AGITATED WITH ORAL CARE.
--- NOTE | 2024-07-31 04:07 | NUR ---
PT IN SOFT RESTRAINTS TOLERATING VENTILATOR WELL. ORAL CARE PERFORMED. BS CLEAR, VITAL WNL.
--- NOTE | 2024-07-31 04:08 | NUR ---
PT ALSO NOTED TO HAVE A CRACK IN RIGHT CORNER OF MOUTH.
[2024-07-31 05:04] LABS: MEAN CELL VOLUME 85 fl (80.0-100.0); MEAN CORPUSCULAR HGB CONC 32 g/dl (33.0-37.0); MEAN PLATELET VOLUME 10.5 fl (7.4-10.4); PLATELET COUNT 123 K/mm3 (130-400); RED BLOOD COUNT 2.62 M/mm3 (4.20-5.60); REDCELL DISTRIBUTION WIDTH-CV 18.7 % (11.5-14.5)
[2024-07-31 05:08] LABS: HEMATOCRIT 22.2 % (42.0-52.0); HEMOGLOBIN 7.1 g/dl (13.5-18.0); MEAN CORPUSCULAR HEMOGLOBIN 27 pg (27-31)
--- NOTE | 2024-07-31 05:14 | NUR ---
Patient's sedation set to standby for lab draws. Patient quickly became more alert; opening eyes to position changes but still does not follow commands or track movements with eyes. Patient rapidly became restless and sedation was resumed at previously infusing dose. No further sedation vacation performed.
[2024-07-31 05:26] LABS: ALBUMIN 1.9 g/dL (3.4-4.8); CALCIUM 7.4 mg/dL (8.4-10.2); CREATININE, serum 2.44 mg/dL (0.72-1.25)
[2024-07-31 05:29] LABS: ARTERIAL BLD GAS O2 SATURATION 92.7 % (92-100); ARTERIAL BLD GAS TCO2 CT 23.9; ARTERIAL BLOOD GAS BASE EXCESS -1.2 (-2-2); ARTERIAL BLOOD GAS HCO3 22.8 meq/L (22-26); ARTERIAL BLOOD GAS PCO2 34.7 mmHg (35-45); ARTERIAL BLOOD GAS PO2 67.1 mmHg (80-100); ARTERIAL BLOOD GAS pH 7.44 (7.35-7.45)
[2024-07-31 05:45] LABS: POTASSIUM 2.9 mEq/L (3.5-4.5)
[2024-07-31 05:48] LABS: LYMPHOCYTE 3 % (20.0-51.0); NEUTROPHILS 91 % (42.0-75.2); PLATELET ESTIMATE DECREASED (NORMAL)
[2024-07-31] MEDS ORDERED: Potassium Chloride 100 ML IV ONE ×2 (06:00→20:00)
--- NOTE | 2024-07-31 07:13 | NUR ---
REPORT RECIVED FROM DOMINGA TUBBS. PT RESTING IN BED ON VENT. PT HAS NO OBVIOUS SIGNS OF DISCOMFORT AT THIS TIME. BED IM LOWEST POSITION, CALL LIGHT IN REACH, BED ALARM ON.
--- NOTE | 2024-07-31 08:04 | NUR ---
PT RESTING IN BED UPON ENTERING ON VENT. VITALS WNL, FINLEY PATENT WITHOUT ISSUES, BILATERAL SOFT WRIST RESTRAINTS IN PLACE. PROPOFOL, FENTANYL AND TPN INFUSING AT THIS TIME. NO PURPOSEFUL MOVEMENT NOTED AND UNABLE TO FOLLOW COMMANDS. PT HAS NO OBVIOUS NEEDS AT THIS TIME. BED IN LOWEST POSITION, CALL LIGHT IN REACH, BED ALARM ON
--- NOTE | 2024-07-31 08:58 | NUR ---
NG TUBE ADVANCED PER DR LEE, NO 59 INCHES. INCREASED LIGHT BROWN FLUID NOTED FROM NG TUBE. PT TOLERATED WELL BUT BECOMING RESTLESS.
--- NOTE | 2024-07-31 09:00 | NUR ---
CENTRAL LINE DRESSING CHANGED
--- NOTE | 2024-07-31 11:04 | NUR ---
TUBE FEEDINGS STARTED PER ORDER
[2024-07-31] MEDS ORDERED: Potassium Chloride 20 mEq/100 mL IV Soln IV SCH (11:30)
--- NOTE | 2024-07-31 14:05 | NUR ---
ADVANCED ETT TO FROM 25 TO 26 @LIP PER DR HENNESSY. NO COMPLICATIONS @0830AM
[2024-07-31 14:14] LABS: HEMATOCRIT 21.3 % (42.0-52.0); HEMOGLOBIN 6.8 g/dl (13.5-18.0)
--- NOTE | 2024-07-31 14:15 | NUR ---
HOSPITALIST NOTIFIED OF HGB 6.8, AWAITING ORDERS
[2024-07-31] MEDS ORDERED: MULTIVITAMINS FOLIC ACID IV SCH (16:00)
[2024-07-31] MEDS ORDERED: [UNRECOGNIZED DRUG - OTHER] IV SCH (16:00)
[2024-07-31] MEDS ORDERED: THIAMINE IV SCH (16:00)
--- NOTE | 2024-07-31 17:13 | NUR ---
SEDATION VACATION NOT DONE AT THIS TIME PER DR HENNESSY. WITH DECREASED SEDATION PT BECOMES RESTLESS AND AGITATED. PER DR HENNESSY WEANING TRIAL WILL BE ATTEMPTED 08/01
--- NOTE | 2024-07-31 20:00 | NUR ---
Pt has what appears to be a cut on the tongue. Mouth bleeds when performing oral care and suctioning. Cut appears to be approximately 1 cm in length, but hard to observe fully due to ET tube in place.
--- NOTE | 2024-07-31 20:00 | NUR ---
Pt resting in bed on ventilator. VSS. IV medications infusing to left IJ central line without difficulty. Pt tolerating ventilator. Tube feeding in progress, pt tolerating well. Pt repositioned, skin on bottom observed and documented in assessment. Pt appears comfortable and without pain. Lap sites on abdomen observed, CDI and bandaids intact. No drainage from lap sites noted. Pt family at bedside and leaving shortly. No concerns at this time, will continue to monitor throughout the night.
[2024-07-31 20:30] LABS: HEMATOCRIT 24.6 % (42.0-52.0); HEMOGLOBIN 7.9 g/dl (13.5-18.0)
--- NOTE | 2024-07-31 20:53 | NUR ---
UNABLE TO ASSESS INTRINSIC PEEP AND PLATEAU PRESSURE AT THIS TIME DUE TO PT OVERBREATHING ON THE VENTILATOR. SOFT RESTRAINTS ARE IN PLACE.
--- NOTE | 2024-07-31 20:56 | NUR ---
COARSE BS HEARD T/O LUNGS. SMALL WHITE THICK BLOOD TINGED SXN'D FROM ETT.
--- NOTE | 2024-07-31 23:50 | NUR ---
PT AGITATED DURING ORAL CARE AND EASILY AROUSABLE. MODERATE THICK WHITE SXN'D FROM ETT. UNABLE TO OBTAIN PLATEAU PRESSURE OR INTRISIC PEEP DUE TO PT OVERBREATHING ON VENTILATOR.
[2024-08-01] VITALS (1038 sets, daily range): BP systolic 92–118; BP diastolic 52–75; PULSE 104–138; TEMP 98.7–101.2; O2SAT 85–100
--- NOTE | 2024-08-01 | NUR ---
Pt continues to rest in bed on the ventilator. Pt tolerating ventilator well. VSS. IV medications infusing to LIJ central line without complications. Tube feeding running, pt tolerating well. Skin unchanged from previous assessment as noted.
--- NOTE | 2024-08-01 02:28 | NUR ---
PT RESTING ON VENT.
--- NOTE | 2024-08-01 03:47 | NUR ---
ORAL CARE DONE BY RN.
[2024-08-01 05:24] LABS: MEAN CELL VOLUME 87 fl (80.0-100.0); MEAN CORPUSCULAR HGB CONC 31 g/dl (33.0-37.0); MEAN PLATELET VOLUME 11.2 fl (7.4-10.4); PLATELET COUNT 153 K/mm3 (130-400); RED BLOOD COUNT 2.85 M/mm3 (4.20-5.60); REDCELL DISTRIBUTION WIDTH-CV 18.6 % (11.5-14.5)
[2024-08-01 05:29] LABS: HEMATOCRIT 24.7 % (42.0-52.0); HEMOGLOBIN 7.7 g/dl (13.5-18.0); MEAN CORPUSCULAR HEMOGLOBIN 27 pg (27-31)
[2024-08-01 05:41] LABS: ARTERIAL BLD GAS O2 SATURATION 96.4 % (92-100); ARTERIAL BLD GAS TCO2 CT 22.1; ARTERIAL BLOOD GAS BASE EXCESS -1.6 (-2-2); ARTERIAL BLOOD GAS HCO3 21.2 meq/L (22-26); ARTERIAL BLOOD GAS PCO2 28.5 mmHg (35-45); ARTERIAL BLOOD GAS PO2 81.2 mmHg (80-100); ARTERIAL BLOOD GAS pH 7.49 (7.35-7.45)
[2024-08-01 05:46] LABS: ALBUMIN 1.8 g/dL (3.4-4.8); CALCIUM 7.7 mg/dL (8.4-10.2); CREATININE, serum 1.9 mg/dL (0.72-1.25); MAGNESIUM 1.8 mg/dL (1.6-2.6); PHOSPHOROUS 2.1 mg/dL (2.3-4.7); POTASSIUM 3.1 mEq/L (3.5-4.5)
--- NOTE | 2024-08-01 06:12 | NUR ---
Sedation vacation began at 0540. Pt tolerating well, VSS. Pt does not appear to be in any discomfort. Pt tolerating ventilator, not coughing.
[2024-08-01] MEDS ORDERED: Potassium Chloride 100 ML IV SCH (06:15)
[2024-08-01 07:05] LABS: ANISOCYTOSIS 2+; BAND 3 % (0-10); EOSINOPHIL 1 % (0-4); HYPOCHROMIA 1+; LYMPHOCYTE 2 % (20.0-51.0); NEUTROPHILS 91 % (42.0-75.2); PLATELET ESTIMATE NORMAL (NORMAL)
[2024-08-01 07:06] LABS: OVALOCYTES 1+
--- NOTE | 2024-08-01 08:33 | NUR ---
PT IS RESTING IN THE BED ON A VENTILATOR. HE DOES OPEN EYES TO VOICE. HE DOES NOT FOLLOW COMMANDS AT THIS TIME. TUBE FEEDING IS STILL RUNNING AND SEDATION WEENING HAS STARTED. HE HAS A FINLEY CATHETER AND NG TUBE IN PLACE. HE HAS SCANT BLEEDING IN HIS MOUTH FROM SCABS ON HIS TONGUE AND MUCOUS MEMBERANES. HE HAS LEFT IJ WITH FENTANYL, PROPFOL, POTASSIUM AND TPN INFUSING.
--- NOTE | 2024-08-01 09:50 | NUR ---
PT STARTED ON PRESSURE SUPPORT TRIAL 5 & PEEP 5 @ 0813 TOLERATED FAIR INITIAL RSBI 48 RR MID 20'S VT 500'S. TRIAL LASTED APPROXIMATELY 40 MINUTES. PT RESTLESS AND TACHYCARDIC PLACED BACK OF ASSIST CONTROL VT DECREASED TO 430ml PER DR HENNESSY @ 0852. SEDATION RESTARTED RN AND DAUGHTER AT BEDSIDE AT THAT TIME.
[2024-08-01] MEDS ORDERED: Acetaminophen Oral Susp 325 MG/10.15 ML UD PO PRN (10:30)
[2024-08-01] MEDS ORDERED: Potassium Phoshate 20 MM in NS 250 ML IV ONE (11:00)
[2024-08-01] MEDS ORDERED: Multivitamins 1 VIAL,Folic Acid 1 MG,Thiamine 200 MG in TPN (Clinimix-E 8%/14%) 1,000 ML IV SCH (16:00)
--- NOTE | 2024-08-01 18:12 | NUR ---
PT SEDATION WAS DECREASED TO PROPOFOL OF 5 AND FENTANYL OF 25. PT WAS ABLE TO RESPOND TO COMMANDS APPROPRIATELY.
--- NOTE | 2024-08-01 21:05 | NUR ---
PATIENT CURRENTLY INTUBATED AND SEDATED. BILATERAL WRIST RESTRAINTS IN PLACE. ET TUBE AT 26 AT THE LIP. NG AT 58 AT THE NARE. LEFT IJ CENTRAL LINE IN PLACE WITH GTTS INFUSING. FINLEY CATHETER IN PLACE AND DRAINING PROPERLY. NO ACUTE EVENTS.
[2024-08-02] VITALS (807 sets, daily range): BP systolic 80–140; BP diastolic 50–84; PULSE 101–140; TEMP 98.7–99.9; O2SAT 82–100
[2024-08-02 04:44] LABS: BASO % 0.1 % (0.0-2.0); EOS # 0.3 K/mm3 (0.0-0.7); EOS % 1.6 % (0.0-4.0); GRAN # 18.4 K/mm3 (1.4-6.5); GRAN % 88.8 % (42.2-75.2); LYMPH # 0.5 K/mm3 (1.2-3.4); LYMPH % 2.2 % (20.0-51.0); MEAN CELL VOLUME 86 fl (80.0-100.0); MEAN CORPUSCULAR HGB CONC 31 g/dl (33.0-37.0); MEAN PLATELET VOLUME 11.3 fl (7.4-10.4); MONO # 1.3 K/mm3 (0.1-0.6); MONO % 6.2 % (1.7-9.3); PLATELET COUNT 188 K/mm3 (130-400); RED BLOOD COUNT 2.86 M/mm3 (4.20-5.60)
[2024-08-02 04:49] LABS: HEMATOCRIT 24.5 % (42.0-52.0); HEMOGLOBIN 7.7 g/dl (13.5-18.0); MEAN CORPUSCULAR HEMOGLOBIN 27 pg (27-31)
[2024-08-02 05:00] LABS: CALCIUM 7.8 mg/dL (8.4-10.2); CREATININE, serum 1.83 mg/dL (0.72-1.25); PHOSPHOROUS 2.8 mg/dL (2.3-4.7); POTASSIUM 3.6 mEq/L (3.5-4.5)
[2024-08-02] MEDS ORDERED: Potassium Chloride 100 ML IV SCH (05:15)
--- NOTE | 2024-08-02 05:46 | NUR ---
PATIENT FOLLOWS COMMANDS WHILE PROPOFOL AND FENTANYL ARE OFF. PATIENT BEGAN TO GET TACHYCARDIC AND COUGHING FREQUENTLY, SO PROPFOL AND FENTANYL TURNED BACK ON, AT A LOWER RATE. WILL CONTINUE TO TITRATE PROP AND FENT DOWN FOR WEANING TRIAL THIS AM. TUBE FEEDS OFF SINCE 0400.
--- NOTE | 2024-08-02 06:09 | NUR ---
Pt has been on spontaneous breathing trial since 424 CPAP 5 and pressure support 5-6cmH2O Pt is resting comfortably at this time on 5+5, obtaining Vts of 490+ at steady rate of 19-20bpm. f/Vt 38.
[2024-08-02 07:22] LABS: ARTERIAL BLD GAS O2 SATURATION 96.4 % (92-100); ARTERIAL BLD GAS TCO2 CT 20.5; ARTERIAL BLOOD GAS BASE EXCESS -3.2 (-2-2); ARTERIAL BLOOD GAS HCO3 19.7 meq/L (22-26); ARTERIAL BLOOD GAS PCO2 27.6 mmHg (35-45); ARTERIAL BLOOD GAS pH 7.47 (7.35-7.45)
--- NOTE | 2024-08-02 07:47 | NUR ---
PATIENT PLACED ON PS/CPAP TRIAL @ 0425. ABG DRAWN 0715 MODERATE ABDOMINAL BREATHING RSBI 44. PLACED BACK OF ASSIST CONTROL AT THIS TIME. MODERATE AMOUNT OF THICK PALE YELLOW SECRETIONS FROM ETT.
--- NOTE | 2024-08-02 12:21 | NUR ---
PT IS RESTING IN THE BED. THE PATIENT IS STILL ON THE VENTILATOR. A WEENING TRIAL HAD BEGUN AROUND 0430 AND HE HAD BEEN ON A CPAP MODE ON THE VENTILAOR FOR APPROX. 3 HOURS. THE PATIENT DID START TO BECOME TACHYPNIC AND TACHYCARDIC. HE WAS SWITCHED BACK OVER TO ASSIST CONTROL AND SEDATION WAS RESTARTED. HE WAS OPENING HIS EYES, BUT WAS NOT FOLLOWING ANY COMMANDS. HIS TUBE FEEDING HAS BEEN HELD AND REMAINS OFF AT THIS TIME. HE HAS A LEFT IJ WITH FENTANYL AND PROPOFOL AND TPN INFUSING. HE HAS A FINLEY CATHETER AND NG TUBE IN PLACE.
[2024-08-02] MEDS ORDERED: Multivitamins 1 VIAL,Folic Acid 1 MG,Thiamine 200 MG in TPN (Clinimix-E 8%/14%) 1,000 ML IV SCH (16:00)
--- NOTE | 2024-08-02 20:00 | NUR ---
Pt resting in bed on ventilator. VSS, aside from tachycardia. IV medications infusing to central line without difficulty, propofol, fentanyl, and TPN. Evening medications administered without difficulty. Tube feeding infusing through NG tube without difficulty. Pt tolerating tube feeding. Pt appears to be restless, but is able to be calmed down through positive reinforcement. Pt coughs frequently while on the ventilator, but otherwise tolerating. Pt not able to follow commands at this time, but will open eyes to speech. Weaning trial to be attempted in the AM.
[2024-08-03] VITALS (734 sets, daily range): BP systolic 85–122; BP diastolic 51–76; PULSE 99–129; TEMP 98.2–100.7; O2SAT 79–100
--- NOTE | 2024-08-03 | NUR ---
Pt continues to rest in bed on the ventilator. Tachycardic. IV medications infusing to central line without difficulty. Propofol, fentanyl, and TPN infusing to central line. Pt appears comfortable, tolerating ventilator at this time with occassional coughing. Hospitalist contacted due to murmur and potential third heart sound not heard on previous assessment. Skin condition is unchanged from previous assesment.
--- NOTE | 2024-08-03 02:28 | NUR ---
Pt HR in the 130's-140's sustained for 30 minutes. IV ativan administered at this time to try to combat tachycardia and discomfort.
[2024-08-03 04:59] LABS: MEAN CELL VOLUME 86 fl (80.0-100.0); MEAN CORPUSCULAR HGB CONC 32 g/dl (33.0-37.0); MEAN PLATELET VOLUME 11.1 fl (7.4-10.4); PLATELET COUNT 249 K/mm3 (130-400); RED BLOOD COUNT 2.89 M/mm3 (4.20-5.60); REDCELL DISTRIBUTION WIDTH-CV 19.8 % (11.5-14.5)
--- NOTE | 2024-08-03 05:00 | NUR ---
Sedation vacation not performed this am due to battling high HR of 120's to 130's all night. Pt was restless and fighting the ventilator throughout most of the night. Possibility of thoracentesis this am in which pt will need rest for. Due to this, pt not a candidate for sedation vacation at this time.
[2024-08-03 05:10] LABS: HEMATOCRIT 24.7 % (42.0-52.0); HEMOGLOBIN 7.8 g/dl (13.5-18.0); MEAN CORPUSCULAR HEMOGLOBIN 27 pg (27-31)
[2024-08-03 05:15] LABS: CREATININE, serum 2.22 mg/dL (0.72-1.25); PHOSPHOROUS 3.3 mg/dL (2.3-4.7); POTASSIUM 3.9 mEq/L (3.5-4.5)
[2024-08-03 06:02] LABS: ARTERIAL BLD GAS O2 SATURATION 96.4 % (92-100); ARTERIAL BLD GAS TCO2 CT 21.4; ARTERIAL BLOOD GAS BASE EXCESS -3.4 (-2-2); ARTERIAL BLOOD GAS HCO3 20.5 meq/L (22-26); ARTERIAL BLOOD GAS PO2 85.6 mmHg (80-100); ARTERIAL BLOOD GAS pH 7.44 (7.35-7.45)
[2024-08-03 06:51] LABS: EOSINOPHIL 4 % (0-4); LYMPHOCYTE 1 % (20.0-51.0); NEUTROPHILS 92 % (42.0-75.2)
[2024-08-03 06:53] LABS: PLATELET ESTIMATE NORMAL (NORMAL)
[2024-08-03 06:55] LABS: ANISOCYTOSIS 1+; POIKILOCYTOSIS 1+
--- NOTE | 2024-08-03 07:00 | NUR ---
REPORT GIVEN FROM DOMINGA SALGADO. PT ON VENT WITH BILATERAL WRIST SOFT RESTRAINTS IN PLACE. PROPOFOL AT 17.8 MLS/HR, FENTANYL 2.5 MLS/HR, TPN 42 MLS/HR IN LEFT IJ. PT TOLERATING VENT AND HAS NO OBVIOUS NEEDS AT THIS TIME.
--- NOTE | 2024-08-03 08:00 | NUR ---
PT ON VENT AND RESTING IN BED UPON ENTERING, SOFT WRIST RESTRAINTS IN PLACE. PT RESPONDING TO STERNAL RUB AND NOT TO VOICE. PT UNABLE TO FOLLOW COMMANDS AT THIS TIME. TUBE FEEDING IN PROGESS. FINLEY PATENT. LEFT IJ IN PLACE. 3 LAP SITES ON ABDOMEN CDI, REDDENED AREA NOTED BELOW TOP SITE. LEFT KNEE ABRASIONS DIGITAL PRE PRESS OPERATOR. 2CM OPEN WOUND NOTED TO LEFT BUTTOCK. NO OPEN AREAS NOTED TO RIGHT BUTTOCKS AT THIS TIME. SMALL AREA OF ACTIVE BLEED NOTED TO TOP OF SACRUM. MEPILEX IN PLACE AND RECTAL THERMOMETER IN PLACE. PT HAS NO OBVIOUS NEEDS AT THIS TIME. BED IN LOWEST POSITION, CALL LIGHT IN REACH, BED ALARM ON.
[2024-08-03] MEDS ORDERED: Potassium Chloride 100 ML IV ONE (09:00)
--- NOTE | 2024-08-03 11:27 | NUR ---
PULLED ETT FROM 26 @ LIPS TO 24 LIPS. TOLERATED WELL
--- NOTE | 2024-08-03 12:35 | NUR ---
PT HYPOTENSIVE AND HOSPITALIST NOTIFIED. LEVOPHED STARTED PER PROTOCOL.
[2024-08-03] MEDS ORDERED: Multivitamins 1 VIAL,Folic Acid 1 MG,Thiamine 200 MG in TPN (Clinimix-E 8%/14%) 1,000 ML IV ONE (16:00)
--- NOTE | 2024-08-03 16:50 | NUR ---
FAMILY AT BEDSIDE AND UPDATED ON PLAN OF CARE. EDUCATION HANDOUTS ABOUT AORTIC STENOSIS, PULMONARY HTN AND CAL PROCEDURE. PT TOLERATING VENT AND HAS NO OBVIOUS NEEDS AT THIS TIME. BED IN LOWEST POSITION, CALL LIGHT IN REACH, BED ALARM ON
--- NOTE | 2024-08-03 17:35 | NUR ---
SEDATION VACATION NOT DONE AT THIS TIME. ATTEMPTED AROUND 0800 THIS MORNING AND PT BECAME TACHYCARDIC IN THE 130S WITH INCREASED ABDOMINAL BREATHING. SEDATION RETURNED TO PREVIOUS SETTINGS.
--- NOTE | 2024-08-03 17:50 | NUR ---
FAMILY NOTIFIED THIS NURSE OF CONCERNS THAT PTS FACE IS GETTING RED. UPON ENTERING PTS SKIN NORMAL AND SLIGHTLY PALE WHICH IS CONSISTENT WITH ASSESSMENTS THIS SHIFT. PT SEEMS TO BE TOLERATING VENT, NO ALARMS NOTED. PTS EYES OPENING INTERMITTENTLY. RESPIRATORY NOTIFIED AND AT BEDSIDE
[2024-08-03] MEDS ORDERED: Albumin (Human) 100 ML IV SCH (18:00)
--- NOTE | 2024-08-03 19:10 | NUR ---
THIS NURSE RECIEVED BEDSIDE REPORT FROM DOMINGA Man. PATIENT IS SEDATED, BUT SEEMING A LITTLE RESTLESS AND COUGHING. THIS NURSE WENT IN TO CHECK ON HIM AND HE CALMED DOWN. PATIENT HAS A LEFT IJ WITH PROPOFOL INFUSING AT 17.8 ML/HR AND FENTANYL INFUSING AT 2.5 ML/HR, AND LEVOPHED INFUSING AT 25.1 ML/HR INTO THE WHITE PORT, AND TPN INFUSING AT 31.2 ML/HR INTO THE BROWN PORT. PATIENT HAS AN NG TUBE IN THE RIGHT NOSTRIL WITH TUBE FEEDINGS RUNNING AT 30 ML/HR WITH Q4H FLUSHES OF 100 ML. PATIENT HAS A FINLEY CATHETER THAT IS DRAINING APPROPRIATELY, WITH NO KINKS OR LOOPS NOTED. BED IS IN LOW POSITION, CALL LIGHT IS WITHIN THE PATIENT'S REACH, NURSE IS CONSTANTLY OBSERVING.
--- NOTE | 2024-08-03 19:18 | NUR ---
This Rn provided education about CAL, aortic stenosis and pulmonary hypertension per family request.
--- NOTE | 2024-08-03 19:21 | NUR ---
DR HENNESSY CALLED THIS NURSE FOR UPDATED, ALL QUESTIONS ANSWERED. THIS NURSE GIVEN A VERBAL ORDER FOR PICC PLACEMENT TOMORROW.
--- NOTE | 2024-08-03 20:03 | NUR ---
PT IN SOFT RESTRAINTS TOLERATING VENT WELL. COPIOUS SECRETIONS SXN'D FROM OROPHARYNX. LARGE YELLOW THICK SXN'D FROM ETT. NG NOTED TO BE SECURED TO ETT. PT OPENS EYES TO SIMULATION.
--- NOTE | 2024-08-03 23:20 | NUR ---
LARGE HU[place]ON THICK SXN'D FROM ETT. PT AGITATED AND TACHYCARDIC. UNABLE TO OBTAIN PLATEAU PRESSURE AND INTRISNIC PEEP.
[2024-08-04] VITALS (1237 sets, daily range): BP systolic 98–140; BP diastolic 56–88; PULSE 97–133; TEMP 38.4; O2SAT 83–100
--- NOTE | 2024-08-04 03:08 | NUR ---
PT RESTING ON VENTILATOR, TOLERATING WELL. BREATHING TX GIVEN INLINE VIA AEROGEN.
--- NOTE | 2024-08-04 05:07 | NUR ---
PATIENT DID NOT RECIEVE A SEDATION VACATION. PATIENT HAS BEEN TACHYCARDIC ALL NIGHT WITHIN THE 130'S. PATIENT ALSO HAS BEEN VERY SENSITIVE TO THE SEDATION, AND WE HAVE HAD TO INCREASE IT TWICE, DUE TO RESTLESSNESS AND AGITATION. PATIENT HAS BEEN COUGHING, BUT TOLERATING THE VENTILATOR. SEDATION VACATION WAS NOT COMPLETED TONIGHT.
[2024-08-04 05:36] LABS: MEAN CELL VOLUME 87 fl (80.0-100.0); MEAN CORPUSCULAR HGB CONC 31 g/dl (33.0-37.0); MEAN PLATELET VOLUME 11.3 fl (7.4-10.4); PLATELET COUNT 307 K/mm3 (130-400); RED BLOOD COUNT 2.84 M/mm3 (4.20-5.60); REDCELL DISTRIBUTION WIDTH-CV 20.4 % (11.5-14.5)
[2024-08-04 05:38] LABS: ARTERIAL BLD GAS O2 SATURATION 95.2 % (92-100); ARTERIAL BLD GAS TCO2 CT 20.1; ARTERIAL BLOOD GAS BASE EXCESS -5.3 (-2-2); ARTERIAL BLOOD GAS HCO3 19.1 meq/L (22-26); ARTERIAL BLOOD GAS PCO2 32.7 mmHg (35-45); ARTERIAL BLOOD GAS PO2 81.6 mmHg (80-100); ARTERIAL BLOOD GAS pH 7.38 (7.35-7.45)
[2024-08-04 05:42] LABS: HEMATOCRIT 24.7 % (42.0-52.0); HEMOGLOBIN 7.7 g/dl (13.5-18.0); MEAN CORPUSCULAR HEMOGLOBIN 27 pg (27-31)
[2024-08-04 05:49] LABS: CALCIUM 8.3 mg/dL (8.4-10.2); CREATININE, serum 2.15 mg/dL (0.72-1.25); POTASSIUM 4.2 mEq/L (3.5-4.5)
[2024-08-04 07:22] LABS: LYMPHOCYTE 2 % (20.0-51.0); NEUTROPHILS 96 % (42.0-75.2); NUCLEATED RED BLOOD CELL 2 (0-6); PLATELET ESTIMATE NORMAL (NORMAL)
[2024-08-04] MEDS ORDERED: Heparin 5,000 UNITS/ML 1 ML VIAL SQ SCH (08:15)
--- NOTE | 2024-08-04 09:15 | NUR ---
Family meeting with patient's daughters (Angela & Russ) completed at this time with Dr. Sarahi Carr, social sciences lecturer (Jes) & this author present. Dr. Carr reviewed hospital course, current diagnosis/problems, ongoing treatments & diagnostic tests results. Discussed neurological response, sedation vacation & ventilator weaning attempts. Plan for PICC line, CAL, CT head/abdomen/pelvis today. Trach/PEG surgeries discussed if patient continues to not make progress with weaning trials; plan for this week tentatively. LTAC transfer discussed. Russ brought up comfort care option & overview provided. Daughters with many scenario based questions that were answered by Dr. Carr. Dr. Carr in meeting for approximately 30 minutes. poultry process worker & this RN spent an additional 30 minutes discussing/reiterating what Dr. Carr had discussed. Family with more scenario based questions that were answered. Russ with more specific questions about what comfort care would entail in the hospital setting & with a potential discharge. Angela verbalized many times that the trach/PEG would help the patient get back home & back to baseline. Advised many times that the patient would need to make good progress at LTAC, likely need rehab & could potentially not get back to the his baseline prior to admission, rather a new normal with many chronic health issues. Daughters brought up the patient's brothers to help make the decision &/or discusse next steps with; offered to have the brothers join a family meeting should the daughters need their support to make big decisions in next few days. Discussed quality of life & what a meaningful recovery would look like to the patient; their views vary between the two of them. Russ requested more information about [facility]; advised that the medical education coordinator would be consulted if approved by Dr. Carr. Daughters with varying views of how to proceed should the patient not make progress in the next 48 hours. All questions answered & support provided.
--- NOTE | 2024-08-04 09:57 | NUR ---
Patient is laying in bed, ETT at 24 cm at the lip, NG tube at 58 cm right nare, esquivel is draining appropriately yellow clear urine. Has levophed, TPN, propofol, and fentanyl infusing into Left IJ site with dressing clean, dry, and intact. Backside was checked with maintenance technician 2nd shift nurse, and dressing was changed. Wound on backside looks to be shearing with some open areas. Covered with Mepalex and being turned Q2, with bed function to assist with turns/ pressure control. Blood pressures have been steady since morning shift began. ETT has white/ clear thick sections. Per Dr. Holt, sedation and fentanyl hve been reduced for mentation. Repeat CT of abdomen and head are scheduled for today. CAL with cardiology is also scheduled for today. PICC line is currently being placed. And will follow up with Infectious diseases about continuing antibiotic/ antifungal medications. Fever this morning of 101.6 at shift change, currently at 100.2, will continue to cool him down and monitor for increase in fevers. With sedation reduced, heart rate in the 120's and blood pressure roughly 120's systolilc. Eyes are open but not tracking to voice or stimuli. Withdrawls from sternal rub, no reflexes or responds to pain in any extremities. Left side pulses had to be dopplered due to being thready, right sided pulses are bounding. Family requested to see backside and wounds on the coccyx area. Dressing removed with charge nurse and family bedside, then replaced with a clean dressing. Continue nutritional needs and turning to prevent further damage.
--- NOTE | 2024-08-04 11:25 | NUR ---
FARHAN attended goals of care meeting with Dr. Sarahi Carr, rating officer Melanie, and two daughters, Angela and Melina. Dr. Carr reviewed patient status and current medical condition, answered all questions. Discussion of continue aggressive care vs transition to comfort care. Patient scheduled for CAL and CT of head, abdomen and pelvis today. Day and FARHAN continued to meet with daughters to discuss options of aggressive vs comfort care/hospice. Explanation of both options provided. Discussed referral to [facility] and purpose of LTACH level of care. Daughters shared that patient's siblings have provided some input for them but they are undecided on direction of care at this time. Dr. Carr proposed giving patient until to get test results and meet again with family to discuss care options. FARHAN sent referral to [facility] via secure email. FARHAN called and spoke with Mykel at [facility] regarding patient's current status and family's current thoughts on goals of care. Mykel stated he will be able to meet with family tomorrow morning between [id number]. ICU trim operator Ashley notified of Mykel's scheduled meeting for tomorrow with family. FARHAN attempted to call patient's daughter Angela without success due to phone number being disconnected. FARHAN will attempt to notify daughter in room. Discharge plan: LTACH vs comfort care
--- NOTE | 2024-08-04 12:19 | NUR ---
CAL performed with MD William, DOMINGA Nelson, Shiela and I - pt intubated and sedated with propofol and fentanyl gtts. Pt tolerated procedure well with existing sedation infusion rate/dose. Bedside handoff performed with DOMINGA Nelson. See Moderate Sedation Flowsheet for futher information
[2024-08-04] MEDS ORDERED: [UNRECOGNIZED DRUG - OTHER] IV SCH (16:00)
[2024-08-04] MEDS ORDERED: CALCIUM GLUCONATE 1000 MG IV SCH (16:00)
[2024-08-04] MEDS ORDERED: MAGNESIUM SULFATE IV SCH (16:00)
[2024-08-04] MEDS ORDERED: Meropenem 500 MG in Water For Injection,Sterile 10 ML IV SCH (18:00)
[2024-08-04] MEDS ORDERED: Fluconazole 400 MG/200 ML IV SOLN IV ONE (18:00)
--- NOTE | 2024-08-04 18:27 | NUR ---
Completed CAL with cardiology, CT of abdomen/pelvis/head, and PICC placed in right upper arm. He has experienced some agitation throughout the day, and was given ativan x1 dose. He has continued to open his eyes on and off, was not tracking me with his eyes earlier in the shift, and then at the 1600 assessment, was tracking and sqeezed his right hand when asked to. Pupils have be 2-4 mm with appropriate reactions. Not otherwise following commands or having purposeful movements. Levophed has been on standby for 35 minutes and last blood pressure was 120/64, HR of 113. Fentanyl and Propofol have been infusing throughout the day. TPN/ tube feeding are infusing. Will continue to monitor for changes.
--- NOTE | 2024-08-04 20:19 | NUR ---
PT BECAME TACHYCARDIC WITH SXN. YELLOW THICK BLOOD TINGED SXN'D FROM ETT. ETT NOTED TO BE 23 @ LIP.
--- NOTE | 2024-08-04 22:24 | NUR ---
PATIENT CURRENTLY INTUBATED AND SEDATED. BILATERAL WRIST RESTRAINTS IN PLACE. ET TUBE AT 23 AT THE LIP. NG AT 56 AT THE NARE. CENTRAL LINE TO LEFT JUGULAR. PICC LINE TO RIGHT UPPER ARM WITH GTTS INFUSING. FINLEY CATHETER IN PLACE AND DRAINING WELL. NO ACUTE EVENTS.
--- NOTE | 2024-08-04 23:36 | NUR ---
ETT ADVANCED 1 CM TO 24 @ LIP. LUBE APPLIED TO R CORNER OF MOUTH. PT TOLERATING VENT WELL.
[2024-08-05] VITALS (993 sets, daily range): BP systolic 97–166; BP diastolic 43–88; PULSE 104–141; TEMP 38.1–38.3; O2SAT 80–100
[2024-08-05 05:36] LABS: ARTERIAL BLD GAS O2 SATURATION 94.3 % (92-100); ARTERIAL BLD GAS TCO2 CT 17.2; ARTERIAL BLOOD GAS BASE EXCESS -8.6 (-2-2); ARTERIAL BLOOD GAS HCO3 16.2 meq/L (22-26); ARTERIAL BLOOD GAS PCO2 30.4 mmHg (35-45); ARTERIAL BLOOD GAS PO2 80.9 mmHg (80-100); ARTERIAL BLOOD GAS pH 7.35 (7.35-7.45)
[2024-08-05 06:03] LABS: BASO % 0.1 % (0.0-2.0); EOS # 0.2 K/mm3 (0.0-0.7); EOS % 1.2 % (0.0-4.0); GRAN % 84.3 % (42.2-75.2); LYMPH # 0.6 K/mm3 (1.2-3.4); LYMPH % 4.5 % (20.0-51.0); MEAN CELL VOLUME 88 fl (80.0-100.0); MEAN CORPUSCULAR HGB CONC 30 g/dl (33.0-37.0); MONO # 1.3 K/mm3 (0.1-0.6); MONO % 9.2 % (1.7-9.3); PLATELET COUNT 311 K/mm3 (130-400); RED BLOOD COUNT 2.65 M/mm3 (4.20-5.60)
[2024-08-05 06:04] LABS: HEMATOCRIT 23.4 % (42.0-52.0); MEAN CORPUSCULAR HEMOGLOBIN 26 pg (27-31)
[2024-08-05 06:25] LABS: ALBUMIN 2.4 g/dL (3.4-4.8); BILIRUBIN,TOTAL 0.4 mg/dL (0.2-1.2); CALCIUM 8.4 mg/dL (8.4-10.2); CREATININE, serum 1.97 mg/dL (0.72-1.25); MAGNESIUM 2.4 mg/dL (1.6-2.6); PHOSPHOROUS 3.2 mg/dL (2.3-4.7); POTASSIUM 4.3 mEq/L (3.5-4.5); TOTAL PROTEIN 5.7 g/dl (6.2-8.1)
--- NOTE | 2024-08-05 06:59 | NUR ---
REDUCED SEDATION, UNSURE IF PATIENT IS FOLLOWING COMMANDS. PATIENT GETS TACHYCARDIC SO UNABLE TO TURN SEDATION COMPLETELY OFF AT THIS TIME. PATIENT ON BREATHING TRIAL CURRENTLY.
--- NOTE | 2024-08-05 07:33 | NUR ---
PATIENT PLACED ON PRESSURE SUPPORT TRIAL 5 AND 5 PEEP @0644 TOLERATING WELL RSBI 28-34. MILD-MODERATE ABDOMINAL BREATHING APPEARS COMFORTABLE. HR 112-122. SPO2 98%. WILL CONTINUE TO MONITOR
--- NOTE | 2024-08-05 07:59 | NUR ---
PER DR. HENNESSY ALL SEDATION WAS STOPPED AT THIS TIME.
--- NOTE | 2024-08-05 08:50 | NUR ---
THE PATIENT WAS ON A SEDATION VACATION AND CPAP TRIAL. HE HAD BECOME TACHYCARDIC. HIS SEDATION WAS RESTARTED PER DR. HENNESSY
--- NOTE | 2024-08-05 09:42 | NUR ---
PATIENT TAKEN OFF PRESSURE SUPPORT TRIAL AT THIS TIME INCREASED HR TO 140. PATIENT LASTED APPROXIMATELY 2 HOURS. WILL ATTEMPT ANOTHER TRIAL IN AFTERNOON PER DR HENNESSY
--- NOTE | 2024-08-05 09:51 | NUR ---
PT IS AWAKE IN THE BED. HE REMAINS ON THE VENTILATOR. HIS SEDATION HAS BEEN REDUCED AND HE IS ON A CPAP TRIAL. HE IS AWAKE AND IS NOT FOLLOWING COMMANDS AT THIS TIME. HE HAS AN NG TUBE WITH TUBE FEEDING AND FREE WATER FLUSHES ON HOLD AT THIS TIME FOR THE CPAP TRIAL. HE HAS FINLEY CATHETER. HE HAS A PICC LINE WITH FENTANYL, PROP AND TPN RUNNING. HE HAS HAD A LARGE BOWEL MOVEMENT.
--- NOTE | 2024-08-05 11:01 | NUR ---
FARHAN attended clinical rounds. Mykel with [facility] present. Per Dr. Carr, patient may reach medical stability by late week for transfer to [facility]. Mykel stating that patient's Medicare is indicating BCBS of [place] is primary. FARHAN explained that patient is retired as of May 2024 and no longer has BCBS insurance. FARHAN contacted Kiya with financial counseling to inquire if hospital can contact Medicare to have BC removed from primary status. Kiya stated she will talk with her hairspring fabrication supervisor. Patient is clinically accepted to [facility] pending medical improvement and insurance clarification. Discharge plan: [facility]
--- NOTE | 2024-08-05 15:41 | NUR ---
SW called [facility] HR benefits to inquire about assistance in getting patient's insurance corrected to have Medicare as primary. Left message for Benefits team to return call tomorrow morning.
[2024-08-05] MEDS ORDERED: FOLIC ACID 1 MG IV SCH (16:00)
[2024-08-05] MEDS ORDERED: [UNRECOGNIZED DRUG - OTHER] IV SCH (16:00)
[2024-08-05] MEDS ORDERED: POTASSIUM ACETATE IV SCH (16:00)
[2024-08-05] MEDS ORDERED: CALCIUM GLUCONATE 1000 MG IV SCH (16:00)
--- NOTE | 2024-08-05 16:24 | NUR ---
PLACED ON PRESSURE SUPPORT TRIAL OF PS+5 PEEP+5. TOLERATING WELL AT THIS TIME RN AND DAUGHTER AT BEDSIDE. APPEARS COMFORTABLE WILL CONTINUE TO MONITOR. RSBI 20. SPO2 100% HR 115-122.
--- NOTE | 2024-08-05 17:25 | NUR ---
PT SEDATION WAS DECREASED AT APPROX. 1600 FOR THE AFTERNOON CPAP TRIAL.
--- NOTE | 2024-08-05 19:37 | NUR ---
PT ON CPAP TRIAL DOING WELL. DAUGHTERS AT BEDSIDE, RSBI 25. PT IS TACHYCARDIC AT 120. PT AWAKE TRACKING MOVEMENTS, FOLLOWING COMMANDS. PT SWITCHED AT 1916 TO VC/AC+ SETTINGS: VT 430, R16 30%, +5.
--- NOTE | 2024-08-05 20:00 | NUR ---
Pt resting in bed on the ventilator. VSS. IV medications infusing to right PICC line and left wrist peripheral IV without complications. Tube feeding in progress to NG tube, pt tolerating well. Pt tolerating ventilator, appears otherwise comfortable and without pain. Pt repositioned and cleaned up after bowel movement. Pt afebrile. 2012 Pt lab values came back for Na and K. Hospitalist contacted. This RN instructed to increase flush amount to combat hypernatremia.
--- NOTE | 2024-08-05 23:34 | NUR ---
Pt appears restless and agitated. Grimacing often without being provoked. Pt appears to be uncomfortable. While still tolerating ventilator, sedation increased to promote comfort and rest at this time.
--- NOTE | 2024-08-05 23:54 | NUR ---
RT CONTACTED BY RN STATING THAT PT SOUNDED WHEEZY. PT ASSESSED AND SXN'D. BS COARSE T/O. UNABLE TO DO BREATHING TX DUE TO PT BEING TACHYCARDIC WITH HEART RATE OF 124.
[2024-08-06] VITALS (299 sets, daily range): BP systolic 100–160; BP diastolic 59–98; PULSE 97–140; TEMP 98.2–101.6; O2SAT 81–100
[2024-08-06 04:48] LABS: BASO # 0.1 K/mm3 (0.0-0.2); BASO % 0.3 % (0.0-2.0); EOS # 0.1 K/mm3 (0.0-0.7); EOS % 0.7 % (0.0-4.0); GRAN # 13.3 K/mm3 (1.4-6.5); GRAN % 84.4 % (42.2-75.2); HEMATOCRIT 27.1 % (42.0-52.0); HEMOGLOBIN 8.2 g/dl (13.5-18.0); LYMPH # 0.8 K/mm3 (1.2-3.4); LYMPH % 4.8 % (20.0-51.0); MEAN CELL VOLUME 87 fl (80.0-100.0); MEAN CORPUSCULAR HEMOGLOBIN 26 pg (27-31); MEAN CORPUSCULAR HGB CONC 30 g/dl (33.0-37.0); MEAN PLATELET VOLUME 11.7 fl (7.4-10.4); MONO # 1.4 K/mm3 (0.1-0.6); MONO % 8.7 % (1.7-9.3); PLATELET COUNT 327 K/mm3 (130-400); RED BLOOD COUNT 3.11 M/mm3 (4.20-5.60); REDCELL DISTRIBUTION WIDTH-CV 20.8 % (11.5-14.5)
--- NOTE | 2024-08-06 05:00 | NUR ---
Sedation vacation performed at this time. Propofol reduced in half, fentanyl unchanged to help manage pt pain/discomfort. Tube feedings have been paused since 0000 in anticipation for extubation vs trach/PEG plan. Pt appears awake and alert at this time. Pt tolerating ventilator. Pt does not appear to be in any distress at this time. Will continue to monitor pt response.
[2024-08-06 05:17] LABS: CALCIUM 8.7 mg/dL (8.4-10.2); CREATININE, serum 1.79 mg/dL (0.72-1.25); POTASSIUM 4.2 mEq/L (3.5-4.5)
[2024-08-06 05:40] LABS: ARTERIAL BLD GAS O2 SATURATION 97.2 % (92-100); ARTERIAL BLD GAS TCO2 CT 19.2; ARTERIAL BLOOD GAS BASE EXCESS -5.3 (-2-2); ARTERIAL BLOOD GAS HCO3 18.3 meq/L (22-26); ARTERIAL BLOOD GAS PO2 100.4 mmHg (80-100); ARTERIAL BLOOD GAS pH 7.42 (7.35-7.45)
--- NOTE | 2024-08-06 08:42 | NUR ---
PT IS RESTING IN THE BED. HE IS AWAKE AND HIS SEDATION HAS BEEN OFF FOR APPROX. ONE HOUR. HE IS LOOKING AROUND THE ROOM AND DOES APPEAR TO TRACT I MOVE ABOUT THE ROOM. HE DOES WIGGLE HIS TOES. HE DOES NOT SQUEEZE HANDS OR GIVE A THUMBS UP. WHEN ASKED IF HE CAN LIFT HIS HEAD OFF OF THE PILLOW IT APPEARS THAT HE TRIES BY LIFTING HIS CHIN. HE HAS A FINLEY CATHETER AND NG TUBE IN PLACE. THE TUBE FEEDS HAVE BEEN OFF SINCE APPROX. MIDNIGHT. HE HAS A PICC LINE WITH FENTANYL AND TPN INFUSING. THE PROPOFOL HAS BEEN OFF SINCE APPROX 6AM.
[2024-08-06 08:45] LABS: ARTERIAL BLD GAS O2 SATURATION 95.7 % (92-100); ARTERIAL BLD GAS TCO2 CT 18.4; ARTERIAL BLOOD GAS BASE EXCESS -8.9 (-2-2); ARTERIAL BLOOD GAS HCO3 17.2 meq/L (22-26); ARTERIAL BLOOD GAS PCO2 38.1 mmHg (35-45); ARTERIAL BLOOD GAS PO2 91.6 mmHg (80-100); ARTERIAL BLOOD GAS pH 7.27 (7.35-7.45)
[2024-08-06] MEDS ORDERED: Sodium Bicarbonate 650 MG TAB PO SCH (09:06)
--- NOTE | 2024-08-06 09:30 | NUR ---
PT SEDATION WAS RESTARTED AT PROPOFOL 30 AND FENTANYL 50. THE PATIENT HAD BEEN ON A SEDATION VACATION AND CPAP TRIAL. THE ETT NEEDS TO BE ADVANCE SO THE SEDATION WAS STARTED AT HIGHER RATES FOR COMFORT.
--- NOTE | 2024-08-06 15:06 | NUR ---
FARHAN received call from Flakita with [employer] verifying that patient's BCBS policy termed on 06/03/24 upon his fci. FARHAN explained that Medicare is still showing BCBS as primary. Flakita is going to try to reach out to see if their department is able to notify Medicare that the BCBS policy is termed. Flakita will notify FARHAN of outcome.
[2024-08-06] MEDS ORDERED: POTASSIUM ACETATE IV SCH (16:00)
[2024-08-06] MEDS ORDERED: [UNRECOGNIZED DRUG - OTHER] IV SCH (16:00)
[2024-08-06] MEDS ORDERED: FOLIC ACID 1 MG IV SCH (16:00)
[2024-08-06] MEDS ORDERED: CALCIUM GLUCONATE 1000 MG IV SCH (16:00)
--- NOTE | 2024-08-06 16:12 | NUR ---
FARHAN spoke with Pelon with [employer] to inquire about assistance getting patient's BCBS policy information removed to allow Medicare to list as primary insurance. Pelon stated that they are not able to contact Medicare to have this done. FARHAN called patient's daughter Angela to discuss and have her contact Medicare on patient's behalf to request having the BCBS removed from Medicare information. Angela agreeable to call [facility] and see if she can speak on patient's behalf.
--- NOTE | 2024-08-06 19:30 | NUR ---
Received report from DOMINGA Vaca. Pt is intubated and lying in bed. Pt on propofol and fentanyl. Tube feeds are running at goal rate. Pt has both soft wrist restraints on at this time. Tenorio in place with no kinks in tubing. Pt opens eyes upon speech, does not follow commands at this time. Bed is in low position. Will continue with pt care.
[2024-08-07] VITALS (544 sets, daily range): BP systolic 84–138; BP diastolic 48–89; PULSE 87–144; TEMP 99.1–100.6; O2SAT 73–100
[2024-08-07 05:44] LABS: BASO % 0.2 % (0.0-2.0); EOS # 0.2 K/mm3 (0.0-0.7); GRAN # 12.9 K/mm3 (1.4-6.5); GRAN % 85.3 % (42.2-75.2); LYMPH # 0.7 K/mm3 (1.2-3.4); LYMPH % 4.8 % (20.0-51.0); MEAN CELL VOLUME 88 fl (80.0-100.0); MEAN CORPUSCULAR HGB CONC 30 g/dl (33.0-37.0); MONO # 1.2 K/mm3 (0.1-0.6); MONO % 7.7 % (1.7-9.3); PLATELET COUNT 342 K/mm3 (130-400); RED BLOOD COUNT 2.97 M/mm3 (4.20-5.60); REDCELL DISTRIBUTION WIDTH-CV 21.2 % (11.5-14.5)
--- NOTE | 2024-08-07 05:46 | NUR ---
Tried to wean pt off of sedation but, once the sedation was titrated down twice the pt's HR was in the 130's and pt was not able to stay calm and was biting on the ET Tube and agitated. Pt kept trying to cough the tube out and shaking his head side to side. Pt also pulling at restraints, so sedation was put back to the original rate from the beginning of the shift. Will pass onto day shift nurse.
[2024-08-07 05:50] LABS: HEMOGLOBIN 7.8 g/dl (13.5-18.0); MEAN CORPUSCULAR HEMOGLOBIN 26 pg (27-31)
[2024-08-07 06:02] LABS: ARTERIAL BLOOD GAS BASE EXCESS -3.4 (-2-2); ARTERIAL BLOOD GAS HCO3 20.3 meq/L (22-26); ARTERIAL BLOOD GAS PCO2 30.8 mmHg (35-45); ARTERIAL BLOOD GAS PO2 103.3 mmHg (80-100); ARTERIAL BLOOD GAS pH 7.44 (7.35-7.45)
[2024-08-07 06:03] LABS: ARTERIAL BLD GAS O2 SATURATION 97.7 % (92-100); ARTERIAL BLD GAS TCO2 CT 21.2
[2024-08-07 06:07] LABS: CALCIUM 8.9 mg/dL (8.4-10.2); CREATININE, serum 1.45 mg/dL (0.72-1.25); MAGNESIUM 2.3 mg/dL (1.6-2.6); PHOSPHOROUS 2.6 mg/dL (2.3-4.7); POTASSIUM 4.3 mEq/L (3.5-4.5)
--- NOTE | 2024-08-07 06:20 | NUR ---
Pt had an uneventful night. Pt intubated and tried the weaning trial, but pt was not able to stay calm and HR went tachy. Pt is on propofol, fentanyl and TPN at this time. Tube feeds are stopped at this time, for a possible weaning trial later in the morning. Tube feeds were stopped at 0400 this morning. Pt's vitals were stable for most of the night and are currently stable at this time. Pt has a esquivel in place with no kinks in tubing and had adequate urine output. Will give report to day shift nurse.
--- NOTE | 2024-08-07 07:40 | NUR ---
Patient sedation was turned back on after his sedation vacation due to tachy heart rate during nightshift. This morning RT and this RN are trying to do a weaning trail, sedation has been halved, and CPAP trail started at 0720. Heart rate alone has increased from low 100-106 bpm, to 120-130 bpm, blood pressure is still in range. At this time, patient is becoming restless, eyes are open and coughing/ fighting the vent is persuing. ETT is 24 at the lip, NG in the right nare, 54 cm. Tenorio is draining hazy yellow urine, PICC line is infusing fentanyl and Propofol in one lumen and TPN in the other. ABG will be drawn at 0820, unless he is unable to tolerate, sedation will be halved until ABG is drawn. Bed turning therapy has been turned on to 30 degrees every 20 minutes to rotate patient to different positions. Monitoring for changes.
[2024-08-07 08:29] LABS: ARTERIAL BLD GAS O2 SATURATION 91.2 % (92-100); ARTERIAL BLOOD GAS BASE EXCESS -3.7 (-2-2); ARTERIAL BLOOD GAS HCO3 22.8 meq/L (22-26); ARTERIAL BLOOD GAS PCO2 47.8 mmHg (35-45); ARTERIAL BLOOD GAS PO2 67.8 mmHg (80-100)
--- NOTE | 2024-08-07 08:30 | NUR ---
Patient had a weaning trail this morning and failed. Heart rate jumped to 150s, with PACs and PVCs, blood pressure increased, he was belly breathing, working hard enough to become diaphoretic. ABG ressulted and he was resedated and taken off of CPAP trail and back to assist control. After reinitiation of sedation, blood pressure dropped and levophed was started breifly, then blood pressure normalized to the 130s systolic. Levophed was put on standby, then following blood pressure was 90/57 with a MAP (63). Restarted the levophed. Ativan was also given due to restlessness and him chewing on the ETT. Continue to monitor for significant changes in condition.
[2024-08-07] MEDS ORDERED: D5W 1,000 ML IV SCH ×2 (09:30→10:45)
--- NOTE | 2024-08-07 13:13 | NUR ---
FARHAN met with patient's daughter Russ to update her. She voiced that she will be calling Medicare to attempt to get BCBS information removed from Medicare site. She voiced frustration that "this wasn't told to her on Saturday" and questioned "are you just holding my dad here because of his insurance?" FARHAN explained that FARHAN has talked with Mykel at [facility] regarding the insurance barrier and was told that their Corporate insurance specialists are working on the issue and patient can still go to [facility] when stable for transfer. Daughter voiced frustration that "this is taking so long." SW explained that patient is not being transferred due to his medical condition and that the doctors will transfer patient when he is more stable. Daughter later provided SW with a document from [employer] regarding patient's insurance and that she is scheduled to talk with Medicare at 1615 today. FARHAN added the [employer] document to clinicals to email to [facility] for update. Discharge plan: LTACH
--- NOTE | 2024-08-07 16:05 | NUR ---
This RN received a call from patients nurse, regarding daughters concerns with conflicting information about [facility] and the need for a trach and peg tube. This RN spoke with daughter at bedside, along with patients primary nurse. This RN then called social baljit Andre, Caterina, ICU charge, RT Graham Ginny, patient's primary nurse to all meet with the daughter, so everyone was told and heard the same information. Prior to this meeting Caterina, ICU charge spoke with Adore Kaur Saville, and Melisa. During the meeting we discussed both the options of trach/peg and compassionately extubate. FARHAN Andre spoke with Mykel at [facility] to clarify if the patient needed to have a trach/Peg before transfer, he stated it was preferred. Daughter also stated she "didn't think her dad would want any of this" but she "wants to give him and chance and not give up on him." Questions were asked and answered to the best of our ability many times.
--- NOTE | 2024-08-07 16:26 | NUR ---
FARHAN received call from Deputy Sheriff Chief Riddhi questioning status of referral to [facility]. FARHAN and FARHAN Downs met with HS to update on patient status and referral to [facility]. SW informed that daughter is upset about patient not being transferred to [facility] and questioning why he cannot go. subassembler called Dr. Carr to inform of family wanting trach/PEG. He is agreeable and instructed subassembler to coordinate with surgeons. FARHAN, FARHAN Downs, HS, RN, RT and subassembler met with daughter in ICU waiting room. All questions answered related to patient's condition, LTACH referral and criteria for transfer. FARHAN called Mykel with [facility] to inquire about criteria for transfer. Mykel stated that patient would require critical drips to be decreased, vitals and labs to be stable, Peep 8 and FI02 at least 50%. They prefer trach/PEG for transfer. Daughter stated other family is questioning to have patient transferred to [facility]. Discussed that insurance would not pay for lateral transfer and that patient would require a higher level of care to qualify for transfer. Daughter states that she will talk with her family and make decision regarding whether to pursue trach/PEG this weekend or consider compassionate extubation. FARHAN will continue to follow.
--- NOTE | 2024-08-07 17:04 | NUR ---
Trache and PEG is scheduled tomorrow at [address] Richmond. Had long conversation with Daughter about what usp care, acute care, ventilation, and condition changes. At this time, she had consulted with other family members on getting this procedure done so that he can have the best chance of improved quality of life. She verbally understood that Mr. Walker's condition may not improve and may have a difficult road to recovery, but is willing to see if the trache and PEG will create improvement. Educated family member on sedation vacations versus weaning trails with ventilator. Reviewed lab changes, what they mean collectively and how that will effect his road to recovery. Will continue to educate and reiterate needs of the patient and changes we are making on a daily basis to accomadate his care and recovery.
--- NOTE | 2024-08-07 17:19 | NUR ---
Heels have light purple what appears to be deep tissue injury, bilateral heel booties have been put on and legs are elevated on pillows with floating heels.
--- NOTE | 2024-08-07 18:38 | NUR ---
Patient family member had questions about getting a phone number for a social psychologist or someone sales operations manager for social psychologist, to see about getting her Dad transferred. She is receiving phone calls from her family, aunt and uncle, about transferring out of our hospital due to "too many red flags." At this time, it is unclear on if the surgery will be taking place tomorrow. According to social work, it would be difficult to get a lateral transfer of care with insurance paying, without a need for a higher level of care. On medical side, surgery for tomorrow has been coordinated, if family is still approving of procedure. Patient's daughter was advised that social work will be here in the AM. Electrician Sound and charge nurse were involved with prior meeting with daughter, and were informed of current situation. Will continue to follow.
--- NOTE | 2024-08-07 21:30 | NUR ---
1914 Received report from DOMINGA Nelson. Pt intubated and lying in bed with both soft wrist restraints in place. Pt's daughter is currently talking to hospitalist about possible transfer and other options for the pt. Vitals are stable at this time. Pt on propofol, fentanyl, and D5W at this time. Tube feeds running at goal rate. 2114 Pt's daughter decided that she does not want to do a trach and peg in the morning and wants to try to do another weaning trial in the morning instead. Talked to hospitalist and Dr. Carr. Per Dr. Carr he wants to do weaning trial per nursing orders and he will be in around 0730 for the CPAP trial that will be started at 0700. Precedex can be used if needed to help wean the sedation. Dr. Carr said to let house know to push the surgery to 0930 instead and to let the surgery and ENT doctors know. House was notified. RT was notified about CPAP trial starting at 0700 tomorrow. Called pt's daughter for the plan tomorrow and to have her come in around [phone] in the morning tomorrow. Will continue with patient care.
[2024-08-08] VITALS (987 sets, daily range): BP systolic 112–167; BP diastolic 63–100; PULSE 89–120; TEMP 97.3–99.9; O2SAT 77–100
[2024-08-08 05:05] LABS: BASO % 0.2 % (0.0-2.0); EOS # 0.2 K/mm3 (0.0-0.7); EOS % 1.5 % (0.0-4.0); GRAN # 11.9 K/mm3 (1.4-6.5); GRAN % 84.1 % (42.2-75.2); LYMPH # 0.9 K/mm3 (1.2-3.4); LYMPH % 6.2 % (20.0-51.0); MEAN CELL VOLUME 87 fl (80.0-100.0); MEAN CORPUSCULAR HGB CONC 31 g/dl (33.0-37.0); MEAN PLATELET VOLUME 12.5 fl (7.4-10.4); MONO % 7.3 % (1.7-9.3); PLATELET COUNT 332 K/mm3 (130-400); REDCELL DISTRIBUTION WIDTH-CV 21.2 % (11.5-14.5)
[2024-08-08 05:06] LABS: HEMATOCRIT 24.3 % (42.0-52.0); HEMOGLOBIN 7.5 g/dl (13.5-18.0); MEAN CORPUSCULAR HEMOGLOBIN 27 pg (27-31)
--- NOTE | 2024-08-08 05:25 | NUR ---
SEDATION VACATION NOT DONE DUE TO WEANING PT OFF OF SEDATION FOR A CPAP TRIAL AT 0700 THIS MORNING.
[2024-08-08 05:27] LABS: CALCIUM 8.3 mg/dL (8.4-10.2); CREATININE, serum 1.31 mg/dL (0.72-1.25); POTASSIUM 4.3 mEq/L (3.5-4.5)
[2024-08-08 05:31] LABS: ARTERIAL BLD GAS O2 SATURATION 96.1 % (92-100); ARTERIAL BLOOD GAS PCO2 33.8 mmHg (35-45); ARTERIAL BLOOD GAS PO2 84.7 mmHg (80-100); ARTERIAL BLOOD GAS pH 7.43 (7.35-7.45)
--- NOTE | 2024-08-08 06:44 | NUR ---
Pt had an uneventful night. Vitals have been stable throughout the night. Pt currently on D5W and Precedex at this time. Tube feeds have been put on hold since 0000 for possible Trach and PEG tube placements this morning. Pt was weaned of sedation throughout the night and placed on Precedex to help with the weaning process. Tenorio in place with no kinks in tubing and adequate urine output. Rectal tube was placed last night to help with the liquid stools and help keep the pt's buttocks clean and dry due to pt having sheering in that area. Mepelex replaced last night at beginning of the shift. Pt is intubated and lying in bed with bed in low position. Will give report to day shift nurse.
--- NOTE | 2024-08-08 07:32 | NUR ---
Patient is laying in bed, visibly uncomfortable. Fighting the ventilator, shifting his head back and forth, belly breathing, purtruding his tongue and coughing. Per Nightshift nurse, sedation has been titrated down, and has been on standby since 0500. Precedex was started on curing press maintainer. Since weaning trail, heart rate has increased from mid 80s to 120s, with PACS and PVCs. He is continuely tensing and bouncing his legs. At this time weaning will continue until Radio Electrician and family arrives to be bedside. Iv fluids and Precedex are infusing without complications, esquivel is draining yellow hazy urine. IV sites showing no signs of infiltration. Edema on BUE, +1. Rectal tube placed. He is following some commands, such as wiggling his toes, and tracking with his eyes, but he does not squeeze hands, lift eye brows, or raise head off pillow. Continue to monitor for significant changes.
[2024-08-08] MEDS ORDERED: Vecuronium 10 MG VIAL IV ONE (08:25)
[2024-08-08] MEDS ORDERED: Midazolam 2 MG/2 ML VIAL ONE (08:26)
[2024-08-08 08:36] LABS: ARTERIAL BLD GAS O2 SATURATION 92.2 % (92-100); ARTERIAL BLD GAS TCO2 CT 25.1; ARTERIAL BLOOD GAS BASE EXCESS -2.1 (-2-2); ARTERIAL BLOOD GAS HCO3 23.7 meq/L (22-26); ARTERIAL BLOOD GAS PCO2 45.4 mmHg (35-45); ARTERIAL BLOOD GAS PO2 71.6 mmHg (80-100); ARTERIAL BLOOD GAS pH 7.34 (7.35-7.45)
[2024-08-08 08:40] LABS: ARTERIAL BLD GAS O2 SATURATION 91.8 % (92-100); ARTERIAL BLD GAS TCO2 CT 22.2; ARTERIAL BLOOD GAS BASE EXCESS -4.9 (-2-2); ARTERIAL BLOOD GAS HCO3 20.9 meq/L (22-26); ARTERIAL BLOOD GAS PCO2 41.8 mmHg (35-45); ARTERIAL BLOOD GAS PO2 68.3 mmHg (80-100); ARTERIAL BLOOD GAS pH 7.32 (7.35-7.45)
[2024-08-08] MEDS ORDERED: Rocuronium 50 MG/5 ML Multi-Dose VIAL ONE (09:08)
[2024-08-08] MEDS ORDERED: fentaNYL 50 MCG/ML 2 ML VIAL IV PRN (09:30)
[2024-08-08] MEDS ORDERED: LORazepam 2 MG/ML 1 ML VIAL IV PRN (09:30)
[2024-08-08] MEDS ORDERED: D5W 1,000 ML IV SCH (09:30)
--- NOTE | 2024-08-08 09:45 | NUR ---
PT TRANSPORTED TO SURGERY AT THIS TIME VIA [facility] PER NEWSPAPER CLIPPER
[2024-08-08] MEDS ORDERED: Lidocaine 1% w EPI (1:100,000) 30 ML Multi-Dose VIAL IJ ONE (10:04)
[2024-08-08 12:04] LABS: CLOSTRIDIUM DIFF A/B NEG
--- NOTE | 2024-08-08 12:24 | NUR ---
Addressed patient family concerns with surgery, and what options are available at this time with his current condition. Discussed trach/peg tube versus pulling the ETT and seeing what happens. Per his ABG, his pH was more acidic indicating that he may not be ready to be extubated. This is day 12 of ETT. When discussed with family, Daughter decided to proceed with trach/PEG procedure. Consents were signed, anesthsesia/ doctors came and spoke with daughter. Operating room and staff left ICU floor at 0945, and returned at 11 am. OR/PACU staff recovered patient bedside in room ICU4. Reported vitals signs were stable during procedure. Trach with cuff size 8.0 placed with stitches and velco band, 15 cc of air in cuff. Oxygen saturation did drop when patient switched from ETT to trach. Dressing changes and trach care have been performed, blood sputum. He was suctioned with white discharge. Peg tube was placed, dressing clean dry and intact. Will change medications to control agitation.
--- NOTE | 2024-08-08 15:03 | NUR ---
Per [facility], facility is ready to accept patient tomorrow any time after noon. humidifier maintenance worker began EMS transportation forms and contacted [facility] to alert them of the needed transport. [facility] will need final medication needs and ventilator settings prior to transport on 08/09/24. humidifier maintenance worker to place EMS transport forms in patient chart.
--- NOTE | 2024-08-08 15:05 | NUR ---
food and drink factory workers faxed clinical updates to [facility].
[2024-08-08 18:38] LABS: POTASSIUM 3.7 mEq/L (3.5-4.5)
--- NOTE | 2024-08-08 18:54 | NUR ---
Patient's daughter is eager to help and learn how to care for her father and his new trach and peg. However, I have educated and reviewed with her what she is able to help him with and what she not allowed to do while in ICU. Daughter asked if she is able to help suction with inline suction that removes secretions, and was advised absolutely not. She asked about moving her father in passive motions on the bed such as stretching/flexing feet and wrists, advised, in small amounts to be sure not to tire him and reminded her of PT/OT involvement in recovery. Also, the LTACH will work with Patient on recovery and strength while adjusting to his new trach and PEG. Patient daughter asked if restraints could be removed, this RN told her no due to policy, patient safety, and presesrvation of new trach/PEG/ Ventilator. will continue to educate. Educated patient and daughter about rectal tube and its necessity at this time. It it assisting in protecting wound on coccyx/sacrum/ minimalize agitation.
[2024-08-08] MEDS ORDERED: Potassium Chloride 100 ML IV SCH (19:00)
--- NOTE | 2024-08-08 19:15 | NUR ---
Received report from DOMINGA Nelson. Vitals are stable at this time. Pt is alert and has vent connected to trach at this time. Pt's daughter is at bedside at this time. The two soft wrist restraints are still in place at this time to help protect the tubes and lines. Fluids are running at this time through the PICC line and no other drips. Tenorio in place with no kinks in tubing. Rectal tube in place with stool in tubing and no kinks in tubing. Pt lying in bed with bed in low position and call light within reach. Will continue with pt care.
[2024-08-09] VITALS (519 sets, daily range): BP systolic 139–163; BP diastolic 74–86; PULSE 110–114; TEMP 97.7–101.2; O2SAT 79–100
[2024-08-09 04:33] LABS: ARTERIAL BLD GAS O2 SATURATION 96.4 % (92-100); ARTERIAL BLD GAS TCO2 CT 21.5; ARTERIAL BLOOD GAS BASE EXCESS -3.1 (-2-2); ARTERIAL BLOOD GAS HCO3 20.6 meq/L (22-26); ARTERIAL BLOOD GAS PCO2 30.9 mmHg (35-45); ARTERIAL BLOOD GAS PO2 86.4 mmHg (80-100); ARTERIAL BLOOD GAS pH 7.44 (7.35-7.45)
[2024-08-09 04:47] LABS: BASO % 0.2 % (0.0-2.0); EOS # 0.1 K/mm3 (0.0-0.7); GRAN # 12.3 K/mm3 (1.4-6.5); LYMPH # 0.8 K/mm3 (1.2-3.4); LYMPH % 5.8 % (20.0-51.0); MEAN CELL VOLUME 86 fl (80.0-100.0); MEAN CORPUSCULAR HGB CONC 31 g/dl (33.0-37.0); MEAN PLATELET VOLUME 11.9 fl (7.4-10.4); MONO # 0.9 K/mm3 (0.1-0.6); MONO % 6.3 % (1.7-9.3); PLATELET COUNT 330 K/mm3 (130-400); REDCELL DISTRIBUTION WIDTH-CV 21.8 % (11.5-14.5)
[2024-08-09 04:51] LABS: HEMATOCRIT 23.3 % (42.0-52.0); HEMOGLOBIN 7.2 g/dl (13.5-18.0); MEAN CORPUSCULAR HEMOGLOBIN 27 pg (27-31)
[2024-08-09 05:06] LABS: CALCIUM 8.3 mg/dL (8.4-10.2); CREATININE, serum 1.09 mg/dL (0.72-1.25); POTASSIUM 3.8 mEq/L (3.5-4.5)
--- NOTE | 2024-08-09 05:54 | NUR ---
Sedation is off, so there is no sedation vacation.
[2024-08-09] MEDS ORDERED: Potassium Chloride 100 ML IV ONE (06:00)
--- NOTE | 2024-08-09 06:55 | NUR ---
Pt had an uneventful night. Pt is alert and able to follow commands. Pt's HR stayed in the 110's to 130's throughout the night. Vitals were stable throughout the night. Tenorio in place with no kinks in tubing and had adequate urine output. Rectal tube in place with no kinks in tubing. Fluids and potassium are running at this time. Pushes of ativan and fentanyl were given throughout the night. Pt did not seem to sleep most of the shift. Will give report to day shift nurse.
--- NOTE | 2024-08-09 08:17 | NUR ---
SW contacted [facility]/EMS and confirmed greens picker time for patient to be transported via EMS to [facility] for care. Manual Plate Filler with [facility]/EMS reports 1pm for greens picker- SW will update nursing staff.
[2024-08-09] MEDS ORDERED: D5W 1,000 ML IV SCH (09:15)
--- NOTE | 2024-08-09 11:32 | NUR ---
Family bedside, performed trach care/ changed collar/ suctioned. Gave bed bath, changed chux, draw sheet, mepalex on coccyx (timed and dated). Gown changed, esquivel care done. VSS, temp is 99.6. Booties are on to protect feet/ heels. He is appropriate to questions, follow commands, but is visibly wore out from surgery yesterday. Spoke with transportation and [facility] coordinator to confirm machine operator picker at [phone].
--- NOTE | 2024-08-09 12:55 | NUR ---
Social work faxed updates and discharge packet to [facility]. Also printed updates for EMS Transport.
--- NOTE | 2024-08-09 12:55 | NUR ---
1255 EMS transport arrived to ambulance bay. 1300 EMS transport arrived to pt room. 1310 EMS transport team connected pt to transport ventilator. 1312 Fresh gauze placed at stoma/flange stitches. 1315 Ambu with mask, obturator, suction catheter, and emergency back up trach provided to EMS transport team. Pt's ventilaorty and airway status stable.
--- NOTE | 2024-08-09 13:41 | NUR ---
Patient was escorted out of our facility with EMS on a portable Ventilator for oxygen support. Report was given to EMS and [facility] Nurse DOMINGA Calhoun. PICC/ LW IV are intact, infusing without complications. Tenorio and rectal tube are draining appropriately. Bed/gown/mepalex changed before arrival. trach care providedm changed gauze with disparture team. Belongings gathered and given to daughter Russ who will escort herself POV. Chart, face sheet, and documentation given to EMS. [facility] phone number [phone]. VSS at departure.
[2024-08-09] MEDS ORDERED: Meropenem 500 MG in Water For Injection,Sterile 10 ML IV SCH (15:30)
== END 2024-08-09 13:17 | DRG 4 ==
LOC: COL.ER 12:25 → ICU 14:45
PROVIDERS: Internal Medicine; Internal Medicine Pulmonary Disease; Nurse Practitioner; Physician Assistant; Surgery; ADMIT Internal Medicine
PROC: 0DJW4ZZ Inspection of Peritoneum, Percutaneous Endoscopic Approach (ICD-10-PCS; 2024-07-27)
PROC: 05HN33Z Insertion of Infusion Device into Left Internal Jugular Vein, Percutaneous Approach (ICD-10-PCS; principal; 2024-07-27 17:00)
PROC: 5A1935Z Respiratory Ventilation, Less than 24 Consecutive Hours (ICD-10-PCS; 2024-08-02)
PROC: 02HV33Z Insertion of Infusion Device into Superior Vena Cava, Percutaneous Approach (ICD-10-PCS; 2024-08-04)
PROC: 0DH64UZ Insertion of Feeding Device into Stomach, Percutaneous Endoscopic Approach (ICD-10-PCS; 2024-08-08)
PROC: 0B110F4 Bypass Trachea to Cutaneous with Tracheostomy Device, Open Approach (ICD-10-PCS; 2024-08-08)
DX: A41.9 Sepsis, unspecified organism (principal); I46.9 Cardiac arrest, cause unspecified; R65.21 Severe sepsis with septic shock; K26.1 Acute duodenal ulcer with perforation; N17.9 Acute kidney failure, unspecified; E87.20 Acidosis, unspecified; J90 Pleural effusion, not elsewhere classified; E87.0 Hyperosmolality and hypernatremia; Z99.11 Dependence on respirator [ventilator] status; G89.29 Other chronic pain; M54.9 Dorsalgia, unspecified; N18.9 Chronic kidney disease, unspecified; I13.10 Hypertensive heart and chronic kidney disease without heart failure, with stage 1 through stage 4 chronic kidney disease, or unspecified chronic kidney disease; D64.9 Anemia, unspecified; E87.6 Hypokalemia; E88.09 Other disorders of plasma-protein metabolism, not elsewhere classified; Z79.899 Other long term (current) drug therapy
CPT/HCPCS: A4217; A4314; A7521; C1751; J0612; J0690; J0692; J1100; J1450; J1644; J1836; J1940; J2060; J2185; J2250; J2371; J2405; J2470; J2543; J2598; J2704; J2710; J3010; J3370; J3411; J3475; J3480; J7030; J7040; J7050; J7060; J7070; J7120; P9016; P9047; Q3014; Q9967